=== PATIENT | female | born 1990 | race Caucasian/White ===

== ENCOUNTER → 2016-05-11 | Outpatient (CLI) | payer OTHER ==
--- NOTE | 2016-05-11 16:48 | US ---
EXAMINATION TYPE: US OB <= 14 wk fetus DATE OF EXAM: 05/11/2016 4:29 PM COMPARISON: NONE CLINICAL HISTORY: Z36 Confirm Dates. EXAM PERFORMED: Transabdominal (TA) EXAM MEASUREMENTS: GESTATIONAL AGE / DATING Physician Established: (10 weeks/0 days) EDC: 12/07/2016 Dates by LMP: (10 weeks/0 days) EDC: 12/07/2016 Dates by First Scan: no previous Dates by Current Scan for: (10 weeks/4 days) EDC: 12/03/2016 MATERNAL ANATOMY Uterus: 12.4 x7.0 x 8.8 cm Right Ovary: 4.3 x 1.6 x 2.2 cm Left Ovary: 3.2 x 2.1 x 2.6 cm Post CDS / Adnexa: wnl Presence of free fluid: no Presence of corpus luteal cyst: no Presence of subchorionic bleed: no GESTATION / SURVEY CRL: 3.7 cm (10 weeks/4 days) Heart Rate: 187 bpm Rhythm: normal IUP: single Nuchal Translucency 10-14wks (normal less than 3mm): 1.2 mm Date of LMP: 03/02/2016 IMPRESSION: Single, viable IUP of 10 weeks 4 days. EDC of 12/03/2016
[2016-05-11 17:12] LABS: CH 33.2; CHCM 34.3; HCT 39.9 % (34.0-46.0); HDW 2.43; HGB 13.3 gm/dL (11.4-16.0); MCH 32.2 pg (25.0-35.0); MCHC 33.2 g/dL (31.0-37.0); Mean Platelet Volume 7.6; RBC 4.11 m/uL (3.80-5.40); RDW 12.1 % (11.5-15.5); WBC 7.4 k/uL (3.8-10.6)
[2016-05-11 17:13] LABS: Appearance,Urine Clear (Clear); Bilirubin,Urine Negative (Negative); Glucose,Urine (UA) Negative (Negative); Ketones,Urine Negative (Negative); Leukocyte Esterase,Urine Negative (Negative); Nitrite,Urine Negative (Negative); Protein,Urine Negative (Negative); Specific Gravity,Urine 1.017 (1.001-1.035); UA Billing (MACRO vs. MICRO) CHEM; Urobilinogen,Urine <2.0 mg/dL (<2.0)
[2016-05-11 17:27] LABS: Glucose 94 mg/dL (74-99); Non-African American GFR(MDRD) >60 (>60 ml/min/1.73 sqM)
[2016-05-11 17:58] LABS: Hepatitis B Surface Ag Index 0.06
[2016-05-12 13:51] LABS: HIV-1/HIV-2 Ab Screen NONREAC (NON REAC)
== END | disposition home or self-care (01) ==
LOC: RADUSMAIN 16:09
PROVIDERS: ATTEND Obstetrics & Gynecology
DX: Z36 Encounter for antenatal screening of mother (principal); Z34.81 Encounter for supervision of other normal pregnancy, first trimester; O26.811 Pregnancy related exhaustion and fatigue, first trimester; Z3A.10 10 weeks gestation of pregnancy
CPT/HCPCS: 36415; 76801; 76813; 81003; 82565; 82947; 85027; 86762; 86780; 86850; 86900; 86901; 87086; 87340; 87389; 87491; 87591

== ENCOUNTER 2016-05-27 11:24 | Emergency (ER) | payer OTHER ==
[2016-05-27 11:42] VITALS: BP 116/64; PULSE 105; RESP 16; TEMP 98.6
--- NOTE | 2016-05-27 12:13 | ED ---
Fever HPI - General Chief Complaint: Fever Stated Complaint: SORE THROAT &FLU LIKE SYMPTOM, 12 WEEKS Time Seen by Provider: 05/27/16 11:52 Source: patient Mode of arrival: ambulatory Limitations: no limitations - History of Present Illness Initial Comments: Patient is a 25-year-old at 12 weeks presenting with cough, congestion, sore throat, subjective fever. Patient's been having symptoms for the past 5 days. Patient complains of a subjective fever and has been taking Tylenol for it. Patient is a 6 contact at home. Her son was sick and his symptoms lasted for a week. Patient denies influenza vaccine. Patient admits to vaccine as up- to-date. Patient's been taking Benadryl as well for her symptoms at night. Admits to subjective fevers, chills. Denies shortness of breath, chest pain, nausea, vomiting, diarrhea, abdominal pain, vaginal bleeding or discharge. Patient denies dysuria. - Related Data Home Medications Medication Instructions Recorded Confirmed ALPRAZolam [Xanax] 0.25 mg PO DAILY PRN 06/30/15 05/27/16 Sertraline [Zoloft] 25 mg PO DAILY 06/30/15 05/27/16 Allergies Allergy/AdvReac Type Severity Reaction Status Date / Time aspirin Allergy Rash/Hives Verified 05/27/16 11:39 azithromycin [From Zithromax] Allergy Rash/Hives Verified 05/27/16 11:39 Review of Systems ROS Statement: Those systems with pertinent positive or pertinent negative responses have been documented in the HPI. Constitutional: + Subjective fever and +chills. HENT: +congestion, no rhinorrhea and + sore throat. Eyes: No discharge and no redness. Respiratory: +cough and no shortness of breath. Cardiovascular: No chest pain and no palpitations. Gastrointestinal: No nausea, no vomiting, no abdominal pain and no diarrhea. Genitourinary: No dysuria and no hematuria. Musculoskeletal: No back pain and no arthralgias. Skin: No pallor and no rash. Neurological: No dizziness and No headaches. ROS Other: All systems not noted in ROS Statement are negative. Past Medical History Past Medical History: No Reported History Additional Past Medical History / Comment(s): ANXIETY ATTACKS History of Any Multi-Drug Resistant Organisms: None Reported Past Surgical History: No Surgical Hx Reported Past Psychological History: Anxiety Smoking Status: Never smoker Past Alcohol Use History: Rare Past Drug Use History: None Reported General Exam - General Exam Comments Initial Comments: Constitutional: Patient appears well-developed and well-nourished. No distress. Head: Normocephalic and atraumatic. Eyes: Conjunctivae and EOM are normal. Right eye exhibits no discharge. Left eye exhibits no discharge. No scleral icterus. Ears: Bilateral TMs with normal landmarks Neck: Normal range of motion. Neck supple. No rigidity. Throat: Nonerythematous. Nonexudative posterior pharynx. Cardiovascular: Normal rate and regular rhythm. No murmur heard. Pulmonary/Chest: Effort normal and breath sounds normal. No respiratory distress. No wheezes. Abdominal: Soft. No distension. There is no tenderness. There is no rebound and no guarding. Musculoskeletal: Normal range of motion. No edema or tenderness. Neurological: Patient alert and oriented to person, place, and time. Skin: Skin is warm and dry. Not diaphoretic. Nursing notes and vitals reviewed. Limitations: no limitations Course Vital Signs 05/27/16 11:39 Temperature 98.6 F Pulse Rate 105 H Respiratory 16 Rate Blood Pressure 116/64 O2 Sat by Pulse 98 Oximetry - Reevaluation(s) Reevaluation #1: Patient with likely viral illness she was offered influenza testing and refusing. Patient Centor criteria negative. Medical Decision Making - Medical Decision Making Patient is a 25-year-old female at 12 weeks presenting with viral symptoms. She was offered influenza testing for which she is refusing. She is using symptomatically control with Benadryl and Tylenol at the direction of her [facility]. Patient reassured that she is doing everything she can for her illness. Prior to discharge, patient was resting comfortably in bed. Course of stay stable for outpatient management. Denies pain. Discussed physical exam with patient. Questions answered and patient is agreeable to discharge with close follow up with Primary Care Physician. Instructed to return to Emergency Department if symptoms worsen. Disposition Clinical Impression: Viral infection Disposition: HOME SELF-CARE Condition: Good Instructions: Fever in Adults (ED) Referrals: Peter Gaytan MD [Primary Care Provider] - 1-2 days Atul Ibrahim DO [Doctor of Osteopathic Medicine] - 1-2 days
== END 2016-05-27 12:25 | disposition home or self-care (01) ==
LOC: EC 11:24
DX: O98.511 Other viral diseases complicating pregnancy, first trimester (principal); B34.9 Viral infection, unspecified; O99.341 Other mental disorders complicating pregnancy, first trimester; F41.9 Anxiety disorder, unspecified; Z79.899 Other long term (current) drug therapy; Z3A.12 12 weeks gestation of pregnancy; Z88.1 Allergy status to other antibiotic agents; Z88.6 Allergy status to analgesic agent
CPT/HCPCS: 99282

== ENCOUNTER → 2016-07-16 | Outpatient (CLI) | payer OTHER ==
--- NOTE | 2016-07-16 15:25 | US ---
EXAMINATION TYPE: US OB anatomy transabd DATE OF EXAM: 07/16/2016 12:43 PM COMPARISON: 05/11/2016 HISTORY: 25-year-old female O36.62X0 LARGE FOR DATES. NO complaints per patient. TECHNIQUE: Transabdominal (TA) FINDINGS: EXAM MEASUREMENTS: GESTATIONAL AGE / DATING Physician Established: (19 weeks/3 days) EDC: 12/07/2016 Dates by LMP: (19 weeks/3 days) EDC: 12/07/2016 Dates by First Scan: (19 weeks/6 days) EDC: 12/03/2016 Dates by Current Scan for: (19 weeks/4 days) EDC: 12/06/2016 SURVEY IUP: Single PLACENTA: Anterior PREVIA: No previa MISAEL: 12.1 cm Normal CERVICAL LENGTH (transabdominal: norm > 3.0cm): 3.9 cm BIOMETRY PRESENTATION: Vertex LIE: Oblique BPD: 4.6 cm 19 weeks / 6 days HC: 17.4 cm 19 weeks / 6 days AC: 14.5 cm 19 weeks / 5 days FL: 3.0 cm 19 weeks / 3 days ESTIMATED WEIGHT IN GRAMS: 303 grams ESTIMATED WEIGHT IN LBS/OZS: 0 lbs. 11 oz. WEIGHT PERCENTAGE BASED ON ESTABLISHED DATE: 57 % HC/AC: 1.20 Normal FL/AC: 21 Normal HEART RATE: 152 bpm RHYTHM: Normal ANATOMY SEEN (within normal limits): Lateral Vent (< 1 cm) 0.6 cm Cisterna Magna (< 1.1 cm) 0.5 cm Nuchal Fold (< 0.6 cm) 0.2 cm Cerebellum (varies with age) 1.9 cm Choroid Plexus (bilateral) Midline Falx Cavus Septi Pellucidi Four Chamber Heart Stomach Situs Nose / Lips Diaphragm Kidneys (bilateral) Bladder Cord Insert Three Vessel Cord Transverse Spine Arms (bilateral) Legs (bilateral) ANATOMY SUBOPTIMALLY VISUALIZED: Outflow tracts: LVOT/RVOT Longitudinal Spine (questionable focal protuberance of the skin line along the upper thoracic spine v ersus off plane imaging). IMPRESSION: 1. Single intrauterine with estimated gestational age of 19 weeks 3 days by LMP. Current ul trasound biometry is concordant (19 weeks 4 days) placing the child at the 57th percentile for weight . 2. A field of the structures on the survey were suboptimally visualized (outflow tracts, longit udinal spine). If desired, the patient can be scheduled for a rescan for missed anatomy. 3. Otherwise, the visualized structures appear normal.
[2016-07-17 09:10] LABS: Alpha Fetoprotein 91.9 ng/mL; Alpha Fetoprotein (M.O.M) 1.89; B-HCG (M.O.M.) 1.31; Gestational Age (days) 3; Human Chorionic Gonadotropin 24.9 IU/mL; Inhibin A (M.O.M.) 0.94; Interpretation SeeBelow; Maternal Age at EDD (Yrs) 28
== END | disposition home or self-care (01) ==
LOC: RADUSWWP 11:06
PROVIDERS: ATTEND Obstetrics & Gynecology
DX: O36.62X0 Maternal care for excessive fetal growth, second trimester, not applicable or unspecified (principal); Z3A.19 19 weeks gestation of pregnancy
CPT/HCPCS: 76811; 82105; 82677; 84702; 86336

== ENCOUNTER → 2016-08-29 | Outpatient (CLI) | payer OTHER ==
[2016-08-29 10:23] LABS: CH 33.7; CHCM 33.8; HCT 35.7 % (34.0-46.0); HGB 11.8 gm/dL (11.4-16.0); MCH 33.2 pg (25.0-35.0); MCHC 33.1 g/dL (31.0-37.0); MCV 100.4 fL (80.0-100.0); Mean Platelet Volume 8.2; RBC 3.55 m/uL (3.80-5.40); WBC 8.7 k/uL (3.8-10.6)
== END | disposition home or self-care (01) ==
LOC: LABWHC1 08:20
PROVIDERS: ATTEND Obstetrics & Gynecology
DX: Z34.82 Encounter for supervision of other normal pregnancy, second trimester (principal); Z3A.00 Weeks of gestation of pregnancy not specified
CPT/HCPCS: 36415; 82950; 85027

== ENCOUNTER 2016-12-01 11:41 | Inpatient (IN) | payer OTHER ==
[2016-12-01] MEDS ORDERED: OXYTOCIN 10 UNIT/ML 1 ML VIAL IM PRN (12:12)
[2016-12-01] MEDS ORDERED: CARBOPROST TROMETHAMINE 250 MCG/ML 1 ML AMP IM PRN (12:12)
[2016-12-01] MEDS ORDERED: LIDOCAINE 1% (PF) 10 MG/ML (30 ML SDV) SQ PRN (12:12)
[2016-12-01] MEDS ORDERED: TERBUTALINE 1 MG/ML VIAL SQ PRN (12:12)
[2016-12-01] MEDS ORDERED: METHYLERGONOVINE 0.2 MG/ML 1 ML AMP IM PRN (12:12)
[2016-12-01] MEDS ORDERED: OXYTOCIN 20 UNITS/1000 ML NS 1,000 ML IV SCH ×2 (12:15→19:45)
[2016-12-01] MEDS ORDERED: AMPICILLIN 2,000 MG in SODIUM CHLORIDE 0.9% 100 ML IVPB STA (12:19)
[2016-12-01] MEDS: LACTATED RINGERS 1,000 ML IV SCH ×4 (12:38→21:22)
[2016-12-01 12:56] LABS: Basophils % (A) 0 %; CHCM 32.7; Eosinophils % (A) 0 %; HDW 3.59; HGB 10.6 gm/dL (11.4-16.0); Hypochromasia Slight; Large Platelets Flag Moderate; Luc # (Auto) 0.19; Luc % (Auto) 2; Lymphocytes # (A) 1.3 k/uL (1.0-4.8); Lymphocytes % (A) 14 %; MCH 28.4 pg (25.0-35.0); MCV 88.8 fL (80.0-100.0); Mean Platelet Volume 11.8; Monocytes # (A) 0.6 k/uL (0-1.0); Monocytes % (A) 7 %; Neutrophils # (A) 7.1 k/uL (1.3-7.7); Neutrophils % (A) 77 %; Poikilocytosis Slight; RBC 3.72 m/uL (3.80-5.40); RDW 14.6 % (11.5-15.5); WBC 9.2 k/uL (3.8-10.6)
[2016-12-01 13:16] LABS: Large Platelets Present
[2016-12-01 13:33] VITALS: BMI 32.2
[2016-12-01] MEDS ORDERED: fentaNYL (PF) 50 MCG/ML 5 ML AMP ONE (13:56)
[2016-12-01] MEDS ORDERED: SODIUM CHLORIDE 0.9% 100 ML BAG ONE (13:56)
[2016-12-01] MEDS ORDERED: BUPIVACAINE (PF) 0.25% 30 ML VIAL ONE (13:56)
[2016-12-01] MEDS ORDERED: AMPICILLIN 1,000 MG in SODIUM CHLORIDE 0.9% 50 ML IVPB SCH (16:30)
[2016-12-01] MEDS ORDERED: CITRIC ACID-SODIUM CITRATE 15 ML CUP PO ONE ×2 (18:28→18:29)
[2016-12-01] MEDS ORDERED: ONDANSETRON 4 MG/2 ML VIAL ONE (18:40)
[2016-12-01] MEDS ORDERED: PHENYLEPHRINE-0.9% NACL SYG 1 MG/10 ML SYRINGE ONE (18:40)
[2016-12-01] MEDS ORDERED: ceFAZolin 1,000 MG VIAL ONE (18:40)
[2016-12-01] MEDS ORDERED: MORPHINE SULFATE (PF) 0.3 MG/0.3 ML SYR ONE (18:40)
[2016-12-01] MEDS ORDERED: fentaNYL (PF) 50 MCG/ML 2 ML AMP ONE (18:40)
[2016-12-01] MEDS ORDERED: KETOROLAC 30 MG/ML 1 ML VIAL ONE (18:40)
[2016-12-01] MEDS ORDERED: SODIUM CHLORIDE 0.9% 1,000 ML BAG ONE (18:40)
[2016-12-01] MEDS ORDERED: ONDANSETRON 4 MG/2 ML VIAL IVP PRN (19:39)
[2016-12-01] MEDS ORDERED: diphenhydrAMINE 25 MG CAP PO PRN (19:39)
[2016-12-01] MEDS ORDERED: ZOLPIDEM 5 MG TAB PO PRN (19:39)
[2016-12-01] MEDS ORDERED: diphenhydrAMINE 50 MG/ML 1 ML VIAL IVP PRN ×2 (19:39)
[2016-12-01] MEDS ORDERED: Acetaminophen-Codeine 300-30mg TAB PO PRN ×2 (19:39)
[2016-12-01] MEDS ORDERED: METOCLOPRAMIDE 5 MG/ML 2 ML VIAL IVP PRN (19:39)
[2016-12-01] MEDS ORDERED: diphenhydrAMINE 50 MG CAP PO PRN (19:39)
[2016-12-01] MEDS ORDERED: ACETAMINOPHEN TAB 325 MG TAB PO PRN (19:39)
[2016-12-01] MEDS ORDERED: NALOXONE 0.4 MG/ML 1 ML VIAL IV PRN (19:39)
[2016-12-01] MEDS ORDERED: LANOLIN CREAM 5 GM TUBE TOPICAL PRN (19:39)
--- NOTE | 2016-12-01 19:48 | P.HPOB ---
History of Present Illness H&P Date: 12/01/16 Chief Complaint: SROM,Labor 26-year-old presents at 39 weeks and 1 day with spontaneous rupture membranes at 9:30 AM with clear fluid and saira every 1-2 minutes. heart tones are 140-145 with moderate variability and reactive. Cervix is 4-5 cm dilated, 80% effaced, -2 station. Review of Systems All systems: negative Constitutional: Denies chills, Denies fever Eyes: denies blurred vision, denies pain Ears, nose, mouth and throat: Denies headache, Denies sore throat Cardiovascular: Denies chest pain, Denies shortness of breath Respiratory: Denies cough Gastrointestinal: Denies abdominal pain, Denies diarrhea, Denies nausea, Denies vomiting Genitourinary: Denies dysuria, Denies hematuria Musculoskeletal: Denies myalgias Integumentary: Denies pruritus, Denies rash Neurological: Denies numbness, Denies weakness Psychiatric: Denies anxiety, Denies depression Endocrine: Denies fatigue, Denies weight change Past Medical History Past Medical History: No Reported History Additional Past Medical History / Comment(s): ANXIETY ATTACKS. Obstetric history: First was a stillbirth at 20 weeks after which she had to have a blood transfusion. Second was a full-term vaginal delivery. This is her third and she's had care with Dr. Rosario. Blood type is A+, antibodies negative, hepatitis B negative, rubella immune, GBS positive, HIV nonreactive. History of Any Multi-Drug Resistant Organisms: None Reported Past Surgical History: No Surgical Hx Reported Past Anesthesia/Blood Transfusion Reactions: No Reported Reaction Past Psychological History: Anxiety Smoking Status: Never smoker Past Alcohol Use History: Rare Past Drug Use History: None Reported - Past Family History Mother Additional Family Medical History / Comment(s): tachycardia Medications and Allergies Allergies Allergy/AdvReac Type Severity Reaction Status Date / Time aspirin Allergy Rash/Hives Verified 05/27/16 11:39 azithromycin [From Zithromax] Allergy Rash/Hives Verified 05/27/16 11:39 Exam Osteopathic Statement: *. No significant issues noted on an osteopathic structural exam other than those noted in the History and Physical/Consult. - Vital Signs Vital signs: Vital Signs Temp Pulse Resp BP Pulse Ox 12/01/16 11:45 97.1 F L 112 H 18 113/66 99 Intake and Output 12/01/16 12/01/16 12/01/16 06:59 14:59 22:59 Other: Weight 85.275 kg Patient Weight 12/02/16 06:59 Weight 85.275 kg Heart: Regular rate and rhythm Lungs: Clear to auscultation bilaterally Abdomen: Soft, nontender Extremities: Negative Homans sign Results Result Diagrams: 12/01/16 12:35 Abnormal Lab Results - Last 24 Hours (Table) 12/01/16 Range/Units 12:35 RBC 3.72 L (3.80-5.40) m/uL Hgb 10.6 L (11.4-16.0) gm/dL Hct 33.0 L (34.0-46.0) % Assessment and Plan (1) Spontaneous rupture of membranes Status: Acute (2) Normal labor Status: Acute Plan: 1. Admit to family place 2. Ampicillin for GBS prophylaxis 3. Anticipate normal vaginal delivery
--- NOTE | 2016-12-01 19:58 | P.OP ---
Date of Procedure: 12/01/16 Preoperative Diagnosis: 1.Arrest of Descent 2. tachycardia Postoperative Diagnosis: 1. Arrest of Descent 2. tachycardia 3. OT presentation Procedure(s) Performed: Primary low transverse Implants: Anesthesia: spinal Surgeon: Anna Novak Folder Machine Operator #1: Awais Dumont Estimated Blood Loss (ml): 500 IV fluids (ml): 1,100 Urine output (ml): 100 Pathology: other (placenta) Condition: stable Disposition: floor Indications for Procedure: 26-year-old presented at 39 weeks and 1 day with spontaneous rupture membranes and in labor. Her cervix was 4-5/80/-2. She was saira every 1-2 minutes heart tones 140-145 with moderate variability and reactive. She did become uncomfortable and did get an epidural. She progressed to about 7-8 cm dilated and progressed further than this. I did have her push a few times though because I could not start Pitocin since she is saira so much she is feeling pressure to push. She did become complete but did not have descent with pushing. The baby started having tachycardia and some decelerations. The decision was made to do a section and informed consent was obtained. Operative Findings: viable male, 5, 8; weight 9 pounds Description of Procedure: Patient was taken to the operating room where spinal anesthesia was found be adequate. She was prepped and draped in normal sterile fashion in dorsal supine position with a leftward tilt. Pfannenstiel skin incision was made the scalpel and carried through to the underlying layer of fascia with the scalpel. Fascia was incised in midline and carried bilaterally with the Lawson scissors. The superior aspect of the fascial incision was grasped with Weidman clamps elevated and the underlying rectus muscles dissected off with the Lawson's. Attention was then turned to inferior aspect of same incision which in a similar fashion was grasped tented up and the underlying rectus muscles dissected off with the Lawson's. The rectus muscles were the midline and the peritoneum was identified tented up and entered sharply with the scalpel. The incision was extended superiorly and inferiorly with good visualization of the bladder. The bladder blade was inserted and the vesicouterine peritoneum was incised the Metzenbaums then carried bilaterally and bladder flap created digitally. A low transverse incision was then made on the uterus with the scalpel. This was carried bilaterally and digital manner. Infant's head delivered atraumatically, nose and mouth bulb suctioned, cord clamped and cut, handed off to waiting nurses. Apgars 5,8, weight 9 lbs. Placenta delivered manually, intact with three-vessel cord. The cord was found to have a true knot and a segment was removed for cord gases. The uterus is exteriorized and cleared of all clots and debris. The uterine incision was closed with 0 Vicryl in a running locked fashion. Second layer of the same sutures used in imbricating fashion to obtain excellent hemostasis. Bladder flap was then reapproximated using 2-0 Vicryl in a running fashion. Both ovaries and tubes appeared normal. The uterus was placed back into the abdomen. The peritoneum was reapproximated using 2-0 Vicryl in a running fashion. The muscles were reapproximated using 2-0 Vicryl in interrupted fashion. The fascia was reapproximated using 0 Vicryl in a running fashion. The subcutaneous tissues closed with 3-0 Vicryl running fashion. The skin was closed craig. Patient tolerated the procedure well, sponge and instrument counts were correct times 2 and she was taken to the recovery room in stable condition.
[2016-12-01] MEDS ORDERED: HYDROcodone/APAP 5-325MG 1 EACH TAB PO PRN (20:06)
[2016-12-01] MEDS: SENNOSIDES-DOCUSATE SODIUM 1 EACH TAB PO SCH (21:21)
[2016-12-02] MEDS: KETOROLAC 30 MG/ML 1 ML VIAL IVP PRN ×4 (00:06→19:38)
[2016-12-02] MEDS: LACTATED RINGERS 1,000 ML IV SCH ×2 (06:47→15:59)
[2016-12-02 08:03] LABS: Basophils % (A) 0 %; CH 28.5; CHCM 31.7; Eosinophils % (A) 0 %; HCT 29.3 % (34.0-46.0); Hypochromasia Moderate; Large Platelets Flag Moderate; Luc # (Auto) 0.27; Luc % (Auto) 1; Lymphocytes # (A) 0.8 k/uL (1.0-4.8); Lymphocytes % (A) 4 %; MCH 27.9 pg (25.0-35.0); MCHC 30.9 g/dL (31.0-37.0); MCV 90.2 fL (80.0-100.0); Mean Platelet Volume 12.1; Monocytes # (A) 1.2 k/uL (0-1.0); Monocytes % (A) 6 %; Neutrophils # (A) 17.3 k/uL (1.3-7.7); Neutrophils % (A) 88 %; Poikilocytosis Slight; RBC 3.25 m/uL (3.80-5.40); RDW 14.5 % (11.5-15.5); WBC 19.6 k/uL (3.8-10.6); WBC (Perox) 21.74
[2016-12-02 08:52] LABS: Large Platelets Present; Polychromasia Present
--- NOTE | 2016-12-02 09:39 | P.PNOBGPC ---
Subjective - Subjective Principal diagnosis: S/P 1*LTCS POD #1 Interval history: Patient seen and examined. Denies nausea, vomiting, chest pain, shortness of breath or calf pain. Complains some itchiness due to her spinal. She has not passed any flatus yet. Tolerating clears. Patient reports: Reports appetite normal, Reports voiding normally, Reports pain well controlled, Reports ambulating normally Objective - Vital Signs Latest vital signs: Vital Signs Temp Pulse Resp BP Pulse Ox 12/02/16 07:35 97.5 F L 87 16 118/55 98 12/02/16 03:59 97.9 F 105 H 18 106/68 97 12/02/16 00:00 97.9 F 82 18 105/63 97 12/01/16 21:37 97.9 F 99 18 115/57 96 12/01/16 21:07 96.7 F L 87 18 123/73 95 12/01/16 20:46 77 18 12/01/16 20:37 97.1 F L 95 18 111/62 96 12/01/16 20:20 96.7 F L 92 18 111/58 98 12/01/16 20:07 96.4 F L 86 18 107/51 98 12/01/16 20:00 96.6 F L 94 18 106/52 99 12/01/16 19:52 96.5 F L 92 18 100/52 99 12/01/16 19:37 96.9 F L 97 16 93/49 98 12/01/16 11:45 97.1 F L 112 H 18 113/66 99 Intake and Output 12/01/16 12/02/16 12/02/16 22:59 06:59 14:59 Output Total 565 315 10 Balance -565 -315 -10 Output: Urine 100 315 10 Uretheral (Gillis) 15 Emesis 465 Other: Voiding Method Indwelling Catheter Indwelling Catheter # Voids 1 - Exam Lungs: bilateral: normal Chest: Normal S1, Normal S2 Extremities: Present: normal Abdomen: Present: normal appearance, soft, distention. Absent: tenderness Incision: Present: normal, dry, intact Uterus: Present: normal, firm - Labs Labs: Abnormal Lab Results - Last 24 Hours (Table) 12/01/16 12/02/16 Range/Units 12:35 07:05 WBC 19.6 H (3.8-10.6) k/uL RBC 3.72 L 3.25 L (3.80-5.40) m/uL Hgb 10.6 L 9.0 L D (11.4-16.0) gm/dL Hct 33.0 L 29.3 L (34.0-46.0) % MCHC 30.9 L (31.0-37.0) g/dL Neutrophils # 17.3 H (1.3-7.7) k/uL Lymphocytes # 0.8 L (1.0-4.8) k/uL Monocytes # 1.2 H (0-1.0) k/uL Assessment and Plan (1) Spontaneous rupture of membranes Current Visit: Yes Status: Resolved Code(s): IOQ7748 - SNOMED Code(s): 074766592 (2) Normal labor Current Visit: Yes Status: Resolved Code(s): O80 - ENCOUNTER FOR FULL-TERM UNCOMPLICATED DELIVERY; Z37.9 - OUTCOME OF DELIVERY, UNSPECIFIED SNOMED Code(s ): 53256665 (3) Status post primary low transverse section Narrative/Plan: 1. continue post op care 2. increase ambulation 3. reg diet with flatus Current Visit: Yes Status: Acute Code(s): Z98.891 - HISTORY OF UTERINE SCAR FROM PREVIOUS SURGERY SNOMED Code(s): 423459991
--- NOTE | 2016-12-02 11:35 | P.PN ---
Progress Note - Text 1040 Anesthesia POD 1. Patient is status post section under spinal anesthesia with intra-thecal preservative free morphine 300 g. Minimal pruritus, good post-op analgesia, and no headache or other complication.
[2016-12-02] MEDS: SENNOSIDES-DOCUSATE SODIUM 1 EACH TAB PO SCH ×2 (12:10→19:40)
[2016-12-02] MEDS: HYDROcodone/APAP 5-325MG 1 EACH TAB PO PRN ×2 (14:40→22:37)
[2016-12-02 15:58] VITALS: RESP 16
[2016-12-03] MEDS: IBUPROFEN 600 MG TAB PO PRN ×4 (01:49→22:01)
[2016-12-03] MEDS: SIMETHICONE 80 MG CHEWABLE PO PRN ×3 (01:52→17:43)
[2016-12-03] MEDS: HYDROcodone/APAP 5-325MG 1 EACH TAB PO PRN ×3 (06:33→18:53)
[2016-12-03] MEDS: SENNOSIDES-DOCUSATE SODIUM 1 EACH TAB PO SCH ×2 (08:43→19:45)
--- NOTE | 2016-12-03 08:44 | P.PNOBGPC ---
Subjective - Subjective Principal diagnosis: Postop day 2 Interval history: Estephania is seen and evaluated. She is in the NICU seeing her baby. She's angling, voiding and she is tolerating a diet. She voices no placed. Her vital signs are stable and afebrile. Heart regular, lungs clear, extremities without pain. Overall she is doing very well for postop day 2. Assessment postop day 2. Plan continue current care. Patient reports: Reports appetite normal, Reports voiding normally, Reports pain well controlled, Reports ambulating normally [place]: in NICU Objective - Vital Signs Latest vital signs: Vital Signs Temp Pulse Resp BP Pulse Ox 12/03/16 08:00 98 F 84 16 104/68 98 12/03/16 00:00 97.7 F 103 H 16 130/67 12/02/16 20:00 97.9 F 76 16 94/66 12/02/16 15:55 98.4 F 95 16 112/59 12/02/16 12:00 98.7 F 80 18 113/55 98 Intake and Output 12/02/16 12/03/16 12/03/16 22:59 06:59 14:59 Other: # Voids 1 1 2 - Labs Labs: Abnormal Lab Results - Last 24 Hours (Table) 12/02/16 Range/Units 07:05 WBC 19.6 H (3.8-10.6) k/uL RBC 3.25 L (3.80-5.40) m/uL Hgb 9.0 L D (11.4-16.0) gm/dL Hct 29.3 L (34.0-46.0) % MCHC 30.9 L (31.0-37.0) g/dL Neutrophils # 17.3 H (1.3-7.7) k/uL Lymphocytes # 0.8 L (1.0-4.8) k/uL Monocytes # 1.2 H (0-1.0) k/uL
[2016-12-04] MEDS: HYDROcodone/APAP 5-325MG 1 EACH TAB PO PRN ×2 (02:11→12:17)
--- NOTE | 2016-12-04 08:13 | P.DS ---
Providers Date of admission: 12/01/16 12:04 Expected date of discharge: 12/04/16 Attending physician: Atul Ibrahim Hospital Course: Estephania is doing very well postop day 3. She's angling, voiding, and she is tolerating her diet. She voices no complaints. Vital signs are stable and afebrile. Heart regular, lungs clear, extremities without pain. Abdomen is soft uterus is firm and incision is clean dry and intact. We'll plan to remove craig today prior to discharge. Prescription for Motrin towel 3 are provided. Discharge instructions were thoroughly reviewed with the patient and she will follow up with me in 1 week. Sessile postop day 3. Plan discharged home follow up with me in 1 week. Patient Condition at Discharge: Good Plan - Discharge Summary New Discharge Prescriptions: New Acetaminophen-Codeine 300-30mg [Tylenol #3] 1 tab PO Q4H PRN #30 tablet PRN Reason: Pain Ibuprofen [Motrin] 600 mg PO Q6HR PRN #30 tab PRN Reason: Pain Discharge Medication List Acetaminophen-Codeine 300-30mg [Tylenol #3] 1 tab PO Q4H PRN #30 tablet [Rx] Ibuprofen [Motrin] 600 mg PO Q6HR PRN #30 tab 12/04/16 [Rx] Follow up Appointment(s)/Referral(s): Atul Ibrahim DO [Doctor of Osteopathic Medicine] - 1 Week Activity/Diet/Wound Care/Special Instructions: No heavy lifting, limit stairs and driving, and pelvic rest. If any high temperatures, heavy bleeding, or severe pain call my office. Other standard postop discharge instructions supplied and reviewed. Discharge Disposition: HOME SELF-CARE
[2016-12-04] MEDS: SENNOSIDES-DOCUSATE SODIUM 1 EACH TAB PO SCH (08:25)
[2016-12-04] MEDS: IBUPROFEN 600 MG TAB PO PRN (08:25)
[2016-12-04 11:13] VITALS: BP 104/58; PULSE 71; TEMP 98.1
--- NOTE | 2016-12-05 08:42 | P.MSEPDOC ---
Presenting Problems - Arrival Data Date of Arrival on Unit: 12/01/16 Time of Arrival on Unit: 12:05 Mode of Transport: Bed - Complaint OB-Reason for Admission/Chief Complaint: Rule Out SROM Comment: SROM clear fluid at 929. Medical History - Information : 3 Para: 1 Term: 1 : 1 Abortions: Spontaneous or Elective: 0 Number of Living Children: 2 - Gestational Age Expected Date of Delivery: 12/07/16 Gestational Age by EMILIE (wks/days): 39 Weeks and 5 Days - History Complications: GBS+ Comment: history of stillbirth at 20weeks requiring blood transfusion Review of Systems - Review of Systems Constitutional: No problems Breast: No problems ENT: No problems Cardiovascular: No problems Respiratory: No problems Gastrointestinal: No problems Genitourinary: No problems Musculoskeletal: No problems Neurological: No problems Skin: No problems Vital Signs - Temperature Temperature: 98.1 F Temperature Source: Oral - Pulse Right Sitting Brachial Pulse Rate: 71 Pulse Assessment Method: Automatic Cuff - Respirations Respiratory Rate: 16 Oxygen Delivery Method: Room Air - Blood Pressure Right Arm Sitting Blood Pressure: 104/58 Blood Pressure Mean: 73 Blood Pressure Source: Automatic Cuff Medical Screen Scoring (Pre) - Cervical Exam Dilation: 1-3 cm = 1 Effacement: More than 50% = 2 Membranes: Ruptured = 3 - Uterine Contractions Frequency: > or = 36 weeks =2 Duration: N/A Intensity: N/A - Maternal Vital Signs Maternal Temperature: N/A Maternal Blood Pressure: N/A Signs of Preeclampsia: N/A Maternal Respirations: N/A - Maternal Trauma Maternal Trauma: N/A - Assessment Baseline FHR: 135 Heart Rate - NICHD Category: Category I (Normal) = 0 NST: Reactive Position: N/A Station: N/A - Total Score Total Score (Pre): 8 - Level of Risk Level of Risk: Medium (6-9) Physician Notification (Post) - Physician Notified Physician Notified Date: 12/01/16 Physician Notified Time: 12:05 Physician/Practitioner Notified:: Dr Novak Spoke With: Dr Novak New Order Received: Yes - Notification Comment Comment: admit - labor Disposition - Disposition OB Disposition: Admit Transferred to:: Discharge Date: 12/04/16 Discharge Time: 14:15 I agree with the RN Medical Screening Exam: Yes Risk & Benefit of care provided described in d/c instruction: Yes Diagnosis: ENCOUNTER FOR FULL-TERM UNCOMPLICATED DELIVERY
== END 2016-12-04 14:15 | disposition home or self-care (01) | DRG 766 ==
LOC: FBPOP 11:41 → 4FBP 12:04
PROVIDERS: ADMIT Obstetrics & Gynecology; ATTEND Obstetrics & Gynecology
PROC: 10D00Z1 Extraction of Products of Conception, Low, Open Approach (ICD-10-PCS; principal; 2016-12-01 18:40)
DX: O69.2XX0 Labor and delivery complicated by other cord entanglement, with compression, not applicable or unspecified (principal); F41.1 Generalized anxiety disorder; O99.344 Other mental disorders complicating childbirth; O62.1 Secondary uterine inertia; O76 Abnormality in fetal heart rate and rhythm complicating labor and delivery; O99.72 Diseases of the skin and subcutaneous tissue complicating childbirth; L29.9 Pruritus, unspecified; Z37.0 Single live birth; Z3A.39 39 weeks gestation of pregnancy; Z88.6 Allergy status to analgesic agent; Z88.1 Allergy status to other antibiotic agents
CPT/HCPCS: 59025; 82803; 84112; 85025; 88307; 99213

== ENCOUNTER 2016-12-08 22:07 | Emergency (ER) | payer OTHER ==
[2016-12-08] MEDS ORDERED: CEPHALEXIN 500MG STARTER PACK 4 CAP BTL PO STA (22:46)
[2016-12-08] MEDS ORDERED: SULFAMETH-TMP DS STARTER PACK 2 TAB BTL PO STA (22:46)
[2016-12-08 22:47] VITALS: TEMP 98.8
--- NOTE | 2016-12-08 22:51 | ED ---
General Adult HPI - General Source: patient, RN notes reviewed Mode of arrival: ambulatory Limitations: no limitations <Vivienne Mobley - Last Filed: 12/08/16 22:47> <Wenceslao Dowd - Last Filed: 12/09/16 06:06> - General Chief complaint: Recheck/Abnormal Lab/Rx Stated complaint: Female Time Seen by Provider: 12/08/16 22:32 - History of Present Illness Initial comments: 26-year-old female presents to the emergency department chief complaint of draining and redness to site that was done on [address] Nov[address]. Patient states she noticed the redness today. Patient states she then noted. Nares that she was concerned. Patient denies any fever chills with this. Patient states she called her OB instead wanted then she noticed the drainage so she thought that she should be seen. Patient denies any nausea vomiting this. Patient denies any changes in vaginal discharge. Patient was concerned due to the redness so she thought that she should be seen.Patient denies any recent fever, chills, shortness of breath, chest pain, back pain, abdominal pain , nausea vomiting, numbness or tingling, dysuria or hematuria, constipation or diarrhea, headaches or visual changes, or any other current symptoms. (Vivienne Mobley) - Related Data Previous Rx's Medication Instructions Recorded Ibuprofen [Motrin] 600 mg PO Q6HR PRN #30 tab 12/04/16 Cephalexin [Keflex] 500 mg PO Q6HR #40 cap 12/08/16 Sulfamethox-Tmp 800-160Mg [Bactrim 2 each PO Q12HR #56 tab 12/08/16 DS 800-160 mg] Allergies Allergy/AdvReac Type Severity Reaction Status Date / Time aspirin Allergy Rash/Hives Verified 12/08/16 22:17 azithromycin [From Zithromax] Allergy Rash/Hives Verified 12/08/16 22:17 Review of Systems ROS Other: All systems not noted in ROS Statement are negative. <Vivienne Mobley - Last Filed: 12/08/16 22:47> ROS Other: All systems not noted in ROS Statement are negative. <Wenceslao Dowd - Last Filed: 12/09/16 06:06> ROS Statement: Those systems with pertinent positive or pertinent negative responses have been documented in the HPI. Past Medical History Past Medical History: No Reported History Additional Past Medical History / Comment(s): ANXIETY ATTACKS. Obstetric history: First was a stillbirth at 20 weeks after which she had to have a blood transfusion. Second was a full-term vaginal delivery. This is her third and she's had care with Dr. Rosario. Blood type is A+, antibodies negative, hepatitis B negative, rubella immune, GBS positive, HIV nonreactive. History of Any Multi-Drug Resistant Organisms: None Reported Past Surgical History: Section Past Anesthesia/Blood Transfusion Reactions: No Reported Reaction Past Psychological History: Anxiety Smoking Status: Never smoker Past Alcohol Use History: Rare Past Drug Use History: None Reported - Past Family History Mother Additional Family Medical History / Comment(s): tachycardia <Vivienne Mobley - Last Filed: 12/08/16 22:47> General Exam Limitations: no limitations General appearance: alert, in no apparent distress Head exam: Present: atraumatic, normocephalic, normal inspection Neck exam: Present: normal inspection. Absent: tenderness, meningismus, lymphadenopathy Respiratory exam: Present: normal lung sounds bilaterally. Absent: respiratory distress, wheezes, rales, rhonchi, stridor GI/Abdominal exam: Present: soft, normal bowel sounds, other (Patient appears to have a healing incision there does appear to be a sternal with some bloody type drainage from the area. There is associated erythema with mild induration surrounding the incision site.). Absent: distended, tenderness , guarding, rebound, rigid Neurological exam: Present: alert, oriented X3 Psychiatric exam: Present: normal affect, normal mood Skin exam: Present: warm, dry, intact, normal color. Absent: rash <Vivienne Mobley - Last Filed: 12/08/16 22:47> Medical Decision Making <Vivienne Mobley - Last Filed: 12/08/16 22:47> <Wenceslao Dowd - Last Filed: 12/09/16 06:06> - Medical Decision Making 18-year-old female presents for what appears to be a seroma with concern for surgical site incision infection. We will send patient and asked for home. We discussed return parameters. We discussed close follow-up with her OB in all the patient's questions. They stated the Shukri and again plan. All questions have been answered. (Vivienne Mobley) 26-year-old female postop presents for evaluation. There is clear blood-tinged fluid draining from the incision. There is no wound dehiscence. There is some erythema on the anterior abdominal wall and mons pubis. No fluctuance or induration. This may represent normal erythema from healing or mild cellulitis. Patient is started on antibiotics and will follow-up with her [employer]. She is given strict return parameters including fever, worsening erythema, or the development of purulent drainage. (Wenceslao Dowd) Disposition Time of Disposition: 22:51 <Vivienne Mobley - Last Filed: 12/08/16 22:47> <Wenceslao Dowd - Last Filed: 12/09/16 06:06> Clinical Impression: section wound seroma, , section wound complication , Postoperative cellulitis of surgical wound Disposition: HOME SELF-CARE Condition: Stable Instructions: Cellulitis (ED) Additional Instructions: Please use medication as discussed. Please follow up with family doctor if symptoms have not improved over the next two days. Please return to the emergency room if your symptoms increase or worsen or for any other concerns. Prescriptions: Cephalexin [Keflex] 500 mg PO Q6HR #40 cap Sulfamethox-Tmp 800-160Mg [Bactrim DS 800-160 mg] 2 each PO Q12HR #56 tab Referrals: Shy Arriaza MD [STAFF PHYSICIAN] - 1-2 days Anna Novak DO [Doctor of Osteopathic Medicine] - 1-2 days
[2016-12-08 23:00] VITALS: BP 125/64; PULSE 84; RESP 16
== END 2016-12-08 22:59 | disposition home or self-care (01) ==
LOC: EC 22:07
DX: O86.0 Infection of obstetric surgical wound (principal); O99.73 Diseases of the skin and subcutaneous tissue complicating the puerperium; L03.311 Cellulitis of abdominal wall; L76.34 Postprocedural seroma of skin and subcutaneous tissue following other procedure; Z88.1 Allergy status to other antibiotic agents; Z88.6 Allergy status to analgesic agent
CPT/HCPCS: 99282

== ENCOUNTER 2018-11-14 13:14 | Observation (INO) | payer OTHER ==
[2018-11-14] MEDS ORDERED: SODIUM CHLORIDE 0.9% 1,000 ML IV STA (14:26)
[2018-11-14] MEDS ORDERED: KETOROLAC 30 MG/ML 1 ML VIAL IVP STA (14:26)
[2018-11-14] MEDS ORDERED: ONDANSETRON 4 MG/2 ML VIAL IVP STA (14:26)
[2018-11-14 14:51] LABS: Basophils % (A) 0 %; Eosinophils # (A) 0.1 k/uL (0-0.7); Eosinophils % (A) 1 %; HCT 39.4 % (34.0-46.0); HGB 12.9 gm/dL (11.4-16.0); Lymphocytes # (A) 0.6 k/uL (1.0-4.8); Lymphocytes % (A) 5 %; MCH 30.5 pg (25.0-35.0); MCHC 32.8 g/dL (31.0-37.0); Mean Platelet Volume 8.1; Monocytes # (A) 0.8 k/uL (0-1.0); Monocytes % (A) 6 %; Neutrophils # (A) 11.5 k/uL (1.3-7.7); Neutrophils % (A) 88 %; Platelet Count 225 k/uL (150-450); RBC 4.24 m/uL (3.80-5.40); RDW 12.8 % (11.5-15.5); WBC 13.1 k/uL (3.8-10.6)
[2018-11-14 14:58] LABS: Appearance,Urine Clear (Clear); Bilirubin,Urine Negative (Negative); Blood,Urine Negative (Negative); Color,Urine Yellow; Glucose,Urine (UA) Negative (Negative); Ketones,Urine Trace (Negative); Leukocyte Esterase,Urine Trace (Negative); Mucus,Urine Few /hpf; Nitrite,Urine Negative (Negative); PH, Urine 7.5 (5.0-8.0); Protein,Urine Negative (Negative); RBC,Urine 3 /hpf (0-5); Specific Gravity,Urine 1.026 (1.001-1.035); Squamous Epithelial Cell,Urine 3 /hpf (0-4); WBC,Urine 2 /hpf (0-5)
[2018-11-14 15:00] LABS: ALT 18 U/L (9-52); AST 19 U/L (14-36); African American GFR (CKD) >90 (>60 ml/min/1.73 sqM); Albumin 4.1 g/dL (3.5-5.0); Alkaline Phosphatase 86 U/L (38-126); Anion Gap 9 mmol/L; Blood Urea Nitrogen 13 mg/dL (7-17); Calcium 9.3 mg/dL (8.4-10.2); Carbon Dioxide 27 mmol/L (22-30); Chloride 102 mmol/L (98-107); Glucose 96 mg/dL (74-99); Non-African American GFR(CKD) >90 (>60 ml/min/1.73 sqM); Potassium 4.7 mmol/L (3.5-5.1); Sodium 138 mmol/L (137-145); Total Protein 7.4 g/dL (6.3-8.2)
--- NOTE | 2018-11-14 15:40 | US ---
EXAMINATION TYPE: US transvaginal DATE OF EXAM: 11/14/2018 COMPARISON: NONE CLINICAL HISTORY: Pelvic pain TECHNIQUE: Transvaginal (TV). Transabdominal sonographic images of the pelvis were acquired. Trans vaginal sonographic images were medically necessary to better assess the following anatomy: EXAM MEASUREMENTS: Uterus: 8.4 x 4.7 x 5.8 cm Endometrial Stripe: 0.7 cm Right Ovary: 2.6 x 2.1 x 1.7 cm Left Ovary: 2.5 x 2.0 x 2.6 cm 1. Uterus: Anteverted Nabothian cysts seen. 2. Endometrium: wnl 3. Right Ovary: wnl 4. Left Ovary: wnl Spectral, color and waveform doppler imaging shows good arterial and venous flow within the ovaries ; there is no evidence for ovarian torsion. 5. Bilateral Adnexa: wnl 6. Posterior cul-de-sac: wnl IMPRESSION: No current sonographic evidence of ovarian torsion. Unremarkable pelvic ultrasound.
--- NOTE | 2018-11-14 16:35 | CT ---
EXAMINATION TYPE: CT abdomen pelvis w con DATE OF EXAM: 11/14/2018 HISTORY: Mid Abdominal pain with nausea CT DLP: 684.9mGycm Automated Exposure Control for Dose Reduction was Utilized. CONTRAST: CT scan of the abdomen and pelvis is performed without oral but with IV Contrast, patient injected wi th 100 mL of Isovue 300. COMPARISON: Same day transvaginal ultrasound FINDINGS: LUNG BASES: No significant abnormality is appreciated. LIVER/GB: No significant abnormality is appreciated. PANCREAS: No significant abnormality is seen. SPLEEN: No significant abnormality is seen. ADRENALS: No significant abnormality is seen. KIDNEYS: No significant abnormality is seen. BOWEL: Evaluation bowel slightly suboptimal due to lack of enteric contrast and patient having little intra-abdominal fat. There is no suspicious small or large bowel dilatation. Appendix measures 5 to 7 mm which is upper limits of normal to perhaps minimally enlarged in portions on coronal image 24 for reference. There is minimal adjacent fat stranding but there is also additio nal mild fat stranding in the left paracolic gutter and lower abdomen. Mild wall thickening flow present in the sigmoid colon in the lower abdomen axial image 56 for refere nce. UTERUS/ADNEXA: Anteverted heterogeneous uterus is seen. No suspicious adnexal masses. No free fluid i n pelvis. LYMPH NODES: No greater than 1cm abdominal or pelvic lymph nodes are appreciated. OSSEOUS STRUCTURES: Transitional type vertebra lumbosacral junction. OTHER: No significant additional abnormality is seen. IMPRESSION: Cannot exclude mild colitis involving sigmoid colon. Equivocal findings for mild or early acute appendicitis. No acute finding otherwise is evident. Strict clinical correlation advised.
[2018-11-14] MEDS ORDERED: NALOXONE 0.4 MG/ML 1 ML VIAL IV PRN (17:27)
[2018-11-14] MEDS ORDERED: ONDANSETRON 4 MG/2 ML VIAL IVP PRN (17:27)
--- NOTE | 2018-11-14 17:27 | ED ---
Abdominal Pain HPI - General Chief Complaint: Abdominal Pain Stated Complaint: Abd pain Time Seen by Provider: 11/14/18 13:22 Source: patient Mode of arrival: ambulatory Limitations: no limitations - History of Present Illness Initial Comments: The patient is a 28-year-old female who presents to the emergency room with complaint of right lower quadrant abdominal pain. She states that it started yesterday. She describes it as sharp shooting pain which radiates up to her right upper quadrant. She has associated nausea with lack of appetite. Admits to chills however has no fever. She denies any changes in her urination to include dysuria, hematuria or difficulty voiding. She denies any changes in her bowel movements to include diarrhea, constipation, melanotic stools or hematochezia. Denies the possibility of being . No abnormal vaginal bleeding. Admits to mild vaginal discharge and has concern for possible yeast infection. No recent antibiotic use. Denies vomiting. No ripping or tearing sensation to her back. Denies flank pain. No reproducible pain upon movement. There are no other alleviating, precipitating or modifying factors - Related Data Home Medications Medication Instructions Recorded Confirmed Ibuprofen [Motrin Ib] 400 mg PO Q6H PRN 11/14/18 11/14/18 Allergies Allergy/AdvReac Type Severity Reaction Status Date / Time aspirin Allergy Rash/Hives Verified 11/14/18 17:42 azithromycin [From Zithromax] Allergy Rash/Hives Verified 11/14/18 17:42 acetaminophen AdvReac Nausea & Verified 11/14/18 17:42 [From Tylenol-Codeine #3] Vomiting codeine AdvReac Nausea & Verified 11/14/18 17:42 [From Tylenol-Codeine #3] Vomiting Review of Systems ROS Statement: Those systems with pertinent positive or pertinent negative responses have been documented in the HPI. ROS Other: All systems not noted in ROS Statement are negative. Past Medical History Past Medical History: No Reported History Additional Past Medical History / Comment(s): ANXIETY ATTACKS. Obstetric history: First was a stillbirth at 20 weeks after which she had to have a blood transfusion. Second was a full-term vaginal delivery. This is her third and she's had care with Dr. Rosario. Blood type is A+, antibodies negative, hepatitis B negative, rubella immune, GBS positive, HIV nonreactive. History of Any Multi-Drug Resistant Organisms: None Reported Past Surgical History: Section Past Anesthesia/Blood Transfusion Reactions: No Reported Reaction Past Psychological History: Anxiety Smoking Status: Never smoker Past Alcohol Use History: Rare Past Drug Use History: None Reported - Past Family History Mother Additional Family Medical History / Comment(s): tachycardia General Exam Limitations: no limitations General appearance: alert, in no apparent distress Head exam: Present: atraumatic, normocephalic, normal inspection Eye exam: Present: normal appearance, PERRL, EOMI. Absent: scleral icterus, conjunctival injection, periorbital swelling ENT exam: Present: normal exam, mucous membranes moist Neck exam: Present: normal inspection. Absent: tenderness, meningismus, lymphadenopathy Respiratory exam: Present: normal lung sounds bilaterally. Absent: respiratory distress, wheezes, rales, rhonchi, stridor Cardiovascular Exam: Present: normal rhythm, tachycardia, normal heart sounds. Absent: systolic murmur, diastolic murmur, rubs, gallop, clicks GI/Abdominal exam: Present: soft, tenderness (right lower quadrant), normal bowel sounds. Absent: distended, guarding, rebound, rigid Extremities exam: Present: normal inspection, full ROM, normal capillary refill. Absent: tenderness, pedal edema, joint swelling, calf tenderness Back exam: Present: normal inspection Neurological exam: Present: alert, oriented X3, CN II-XII intact Psychiatric exam: Present: normal affect, normal mood Skin exam: Present: warm, dry, intact, normal color. Absent: rash Course Vital Signs 11/14/18 11/14/18 11/14/18 13:31 17:20 18:24 Temperature 99.8 F H 99.0 F Pulse Rate 119 H 114 H Pulse Rate [ 92 Pulse Oximetery ] Respiratory 18 16 18 Rate Blood Pressure 116/60 117/61 Blood Pressure 113/69 [Left Arm] O2 Sat by Pulse 100 99 100 Oximetry Medical Decision Making - Medical Decision Making Upon arrival the patient is placed into room 22. She is hooked up to continuous pulse ox and cardiac monitoring. The patient has tenderness in the right lower quadrant therefore I am concerned for appendicitis. I did recommend laboratory studies, a urinalysis, a CT of the patient's abdomen and pelvis and a pelvic ultrasound. Upon return of the results they are discussed with the patient. Blood work is notable for a white blood cell count of 13,000. CT demonstrates possible colitis versus acute appendicitis. Because of these results I did call discuss case with Dr. Brower. She recommend treatment with Zosyn. I did obtain blood cultures and initiated antibiotics. Dr. Brower did accept admission of the patient. Bridging orders were placed. The patient was reevaluated and her abdomen remains non-peritoneal. She remained in stable condition was transported to the floor - Differential Diagnosis acute abd pain, acute colitis, acute appendicitis, acute leukocytosis - Lab Data Result diagrams: 11/15/18 06:09 11/15/18 06:09 Lab Results 11/14/18 11/14/18 11/14/18 Range/Units 14:26 14:26 14:26 WBC 13.1 H (3.8-10.6) k/uL RBC 4.24 (3.80-5.40) m/uL Hgb 12.9 (11.4-16.0) gm/dL Hct 39.4 (34.0-46.0) % MCV 93.0 (80.0-100.0) fL MCH 30.5 (25.0-35.0) pg MCHC 32.8 (31.0-37.0) g/dL RDW 12.8 (11.5-15.5) % Plt Count 225 (150-450) k/uL Neutrophils % 88 % Lymphocytes % 5 % Monocytes % 6 % Eosinophils % 1 % Basophils % 0 % Neutrophils # 11.5 H (1.3-7.7) k/uL Lymphocytes # 0.6 L (1.0-4.8) k/uL Monocytes # 0.8 (0-1.0) k/uL Eosinophils # 0.1 (0-0.7) k/uL Basophils # 0.0 (0-0.2) k/uL Sodium 138 (137-145) mmol/L Potassium 4.7 (3.5-5.1) mmol/L Chloride 102 (98-107) mmol/L Carbon Dioxide 27 (22-30) mmol/L Anion Gap 9 mmol/L BUN 13 (7-17) mg/dL Creatinine 0.60 (0.52-1.04) mg/dL Est GFR (CKD-EPI)AfAm >90 (>60 ml/min/1.73 sqM) Est GFR (CKD-EPI)NonAf >90 (>60 ml/min/1.73 sqM) Glucose 96 (74-99) mg/dL Plasma Lactic Acid Nikolay (0.7-2.0) mmol/L Calcium 9.3 (8.4-10.2) mg/dL Total Bilirubin 1.0 (0.2-1.3) mg/dL AST 19 (14-36) U/L ALT 18 (9-52) U/L Alkaline Phosphatase 86 (38-126) U/L Total Protein 7.4 (6.3-8.2) g/dL Albumin 4.1 (3.5-5.0) g/dL Lipase 30 (23-300) U/L Urine Color Urine Appearance (Clear) Urine pH (5.0-8.0) Ur Specific [place] (1.001-1.035) Urine Protein (Negative) Urine Glucose (UA) (Negative) Urine Ketones (Negative) Urine Blood (Negative) Urine Nitrite (Negative) Urine Bilirubin (Negative) Urine Urobilinogen (<2.0) mg/dL Ur Leukocyte Esterase (Negative) Urine RBC (0-5) /hpf Urine WBC (0-5) /hpf Ur Squamous Epith Cells (0-4) /hpf Urine Mucus (None) /hpf Urine HCG, Qual Not Detected (Not Detectd) 11/14/18 11/14/18 Range/Units 14:26 14:26 WBC (3.8-10.6) k/uL RBC (3.80-5.40) m/uL Hgb (11.4-16.0) gm/dL Hct (34.0-46.0) % MCV (80.0-100.0) fL MCH (25.0-35.0) pg MCHC (31.0-37.0) g/dL RDW (11.5-15.5) % Plt Count (150-450) k/uL Neutrophils % % Lymphocytes % % Monocytes % % Eosinophils % % Basophils % % Neutrophils # (1.3-7.7) k/uL Lymphocytes # (1.0-4.8) k/uL Monocytes # (0-1.0) k/uL Eosinophils # (0-0.7) k/uL Basophils # (0-0.2) k/uL Sodium (137-145) mmol/L Potassium (3.5-5.1) mmol/L Chloride (98-107) mmol/L Carbon Dioxide (22-30) mmol/L Anion Gap mmol/L BUN (7-17) mg/dL Creatinine (0.52-1.04) mg/dL Est GFR (CKD-EPI)AfAm (>60 ml/min/1.73 sqM) Est GFR (CKD-EPI)NonAf (>60 ml/min/1.73 sqM) Glucose (74-99) mg/dL Plasma Lactic Acid Nikolay 0.8 (0.7-2.0) mmol/L Calcium (8.4-10.2) mg/dL Total Bilirubin (0.2-1.3) mg/dL AST (14-36) U/L ALT (9-52) U/L Alkaline Phosphatase (38-126) U/L Total Protein (6.3-8.2) g/dL Albumin (3.5-5.0) g/dL Lipase (23-300) U/L Urine Color Yellow Urine Appearance Clear (Clear) Urine pH 7.5 (5.0-8.0) Ur Specific [place] 1.026 (1.001-1.035) Urine Protein Negative (Negative) Urine Glucose (UA) Negative (Negative) Urine Ketones Trace H (Negative) Urine Blood Negative (Negative) Urine Nitrite Negative (Negative) Urine Bilirubin Negative (Negative) Urine Urobilinogen 4.0 (<2.0) mg/dL Ur Leukocyte Esterase Trace H (Negative) Urine RBC 3 (0-5) /hpf Urine WBC 2 (0-5) /hpf Ur Squamous Epith Cells 3 (0-4) /hpf Urine Mucus Few H (None) /hpf Urine HCG, Qual (Not Detectd) Disposition Clinical Impression: Abdominal pain, Acute appendicitis, Acute colitis Disposition: ADMITTED IP TO THIS [facility] Condition: Stable Is patient prescribed a controlled substance at d/c from ED?: No Decision to Admit Reason: Admit from EC Decision Date: 11/14/18 Decision Time: 17:27
[2018-11-14] MEDS ORDERED: PIPERACILLIN-TAZOBACTAM 3.375 GM in SODIUM CHLORIDE 0.9% 100 ML IVPB STA (18:03)
[2018-11-14 18:42] VITALS: BMI 28.3
[2018-11-14] MEDS: MORPHINE SULFATE 4 MG/ML SYRINGE IV PRN ×2 (18:44→22:31)
[2018-11-14] MEDS: SODIUM CHLORIDE 0.9% 1,000 ML IV SCH (18:45)
[2018-11-15] MEDS: MORPHINE SULFATE 4 MG/ML SYRINGE IV PRN (02:25)
[2018-11-15] MEDS: PIPERACILLIN-TAZOBACTAM 3.375 GM in SODIUM CHLORIDE 0.9% 100 ML IVPB SCH ×3 (02:25→15:38)
[2018-11-15] MEDS: SODIUM CHLORIDE 0.9% 1,000 ML IV SCH (06:00)
[2018-11-15 06:36] LABS: Basophils % (A) 0 %; Eosinophils # (A) 0.1 k/uL (0-0.7); Eosinophils % (A) 1 %; HCT 34.7 % (34.0-46.0); HGB 11.5 gm/dL (11.4-16.0); Lymphocytes % (A) 15 %; MCH 31.8 pg (25.0-35.0); MCHC 33.2 g/dL (31.0-37.0); MCV 95.9 fL (80.0-100.0); Mean Platelet Volume 8.3; Monocytes # (A) 0.5 k/uL (0-1.0); Monocytes % (A) 8 %; Neutrophils # (A) 4.7 k/uL (1.3-7.7); Neutrophils % (A) 74 %; Platelet Count 197 k/uL (150-450); RBC 3.62 m/uL (3.80-5.40); RDW 13.7 % (11.5-15.5); WBC 6.3 k/uL (3.8-10.6)
[2018-11-15 06:48] LABS: African American GFR (CKD) >90 (>60 ml/min/1.73 sqM); Anion Gap 7 mmol/L; Blood Urea Nitrogen 11 mg/dL (7-17); Calcium 8.5 mg/dL (8.4-10.2); Carbon Dioxide 28 mmol/L (22-30); Chloride 104 mmol/L (98-107); Glucose 103 mg/dL (74-99); Non-African American GFR(CKD) >90 (>60 ml/min/1.73 sqM); Potassium 3.7 mmol/L (3.5-5.1); Sodium 139 mmol/L (137-145)
[2018-11-15 07:29] VITALS: RESP 16
--- NOTE | 2018-11-15 07:35 | P.GSHP ---
History of Present Illness H&P Date: 11/15/18 CHIEF COMPLAINT: Right lower quadrant abdominal pain with appendicitis for 1 day. HISTORY OF PRESENT ILLNESS: The patient is a previously healthy 28-year-old male who presents with 1.5 day history of periumbilical with right lower quadrant abdominal pain that started last night. No reports of prior abdominal pain. He states the intensity of the pain is moderate to severe. He presented with CT abdomen and pelvis consistent with dilated appendix suspicious for appendicitis hence general surgery admission. PAST MEDICAL HISTORY: See list. PAST SURGICAL HISTORY: See list. CURRENT MEDICATIONS: See list. ALLERGIES: See list. SOCIAL HISTORY: Non-tobacco user. FAMILY HISTORY: Denies Crohns disease and ulcerative colitis. REVIEW OF ORGAN SYSTEMS: CONSTITUTIONAL: Denies any fever or chills. Denies recent weight loss. HEENT: Denies any trouble with vision, hearing or nosebleeds. No difficulty swallowing. LYMPHATIC: The patient denies any lumps and bumps around the neck. ENDOCRINE: Denies any thyroid disorders. Denies any blood sugar glucose intolerance. RESPIRATORY: Denies shortness of breath including chronic cough. CARDIOVASCULAR: Denies history of chest pain with exertion. GASTROINTESTINAL: Denies regurgitation of bile at night as well as intermittent nausea. No blood in stools. GENITOURINARY: Denies any blood in urine or increased urinary frequency. MUSCULOSKELETAL: Denies current joint arthritis. NEUROLOGIC: Denies any numbness or tingling along the distal extremities. No seizure disorders or headaches. PSYCHIATRIC: Denies any depression or suicidal ideation. History of anxiety attacks HEMATOLOGIC: Denies any abnormal bleeding or bruising. PHYSICAL EXAMINATION: GENERAL: Well developed and in no acute distress. Pleasant. HEENT: No sclera icterus. Extraocular movements grossly intact. Moist buccal mucosa. Head is atraumatic, normocephalic. Hears conversational speech. No nasal drainage. NECK: Supple without lymphadenopathy. No JV distention. CHEST: Non-labored respirations and equal bilateral excursions. CARDIOVASCULAR: Regular rate and rhythm. Palpable 2+ radial pulses. ABDOMEN: Soft, tender at the right lower quadrant without guarding. MUSCULOSKELETAL: No clubbing, cyanosis or edema. NEUROLOGIC: No focal or lateralizing signs. PSYCH: Appropriate affect. Alert and oriented to person, place and time. SKIN: Well perfused. Good skin turgor. LABS: Reviewed STUDIES: CT of the abdomen and pelvis reviewed with findings consistent with appendicitis. ASSESSMENT: 1. Right lower quadrant pain. 2. Appendicitis. 3. Leukocytosis. PLAN: 1. I have discussed benefits and risks of laparoscopic appendectomy. 2. Bilateral SCDs. 3. Antibiotics. 4. DVT prophylaxis with heparin. 5. GI prophylaxis. Thank you very much for allowing me to participate in the care of your patient. Past Medical History Past Medical History: No Reported History Additional Past Medical History / Comment(s): ANXIETY ATTACKS. Obstetric history: First was a stillbirth at 20 weeks after which she had to have a blood transfusion. Second was a full-term vaginal delivery. This is her third and she's had care with Dr. Rosario. Blood type is A+, antibodies negative, hepatitis B negative, rubella immune, GBS po sitive, HIV nonreactive. History of Any Multi-Drug Resistant Organisms: None Reported Past Surgical History: Section Past Anesthesia/Blood Transfusion Reactions: No Reported Reaction Past Psychological History: Anxiety Smoking Status: Never smoker Past Alcohol Use History: Rare Past Drug Use History: None Reported - Past Family History Mother Additional Family Medical History / Comment(s): tachycardia Medications and Allergies Home Medications Medication Instructions Recorded Confirmed Type Ibuprofen [Motrin Ib] 400 mg PO Q6H PRN 11/14/18 11/14/18 History Allergies Allergy/AdvReac Type Severity Reaction Status Date / Time aspirin Allergy Rash/Hives Verified 11/14/18 17:42 azithromycin [From Zithromax] Allergy Rash/Hives Verified 11/14/18 17:42 acetaminophen AdvReac Nausea & Verified 11/14/18 17:42 [From Tylenol-Codeine #3] Vomiting codeine AdvReac Nausea & Verified 11/14/18 17:42 [From Tylenol-Codeine #3] Vomiting Surgical - Exam Vital Signs Temp Pulse Resp BP Pulse Ox 99.8 F H 119 H 18 116/60 100 11/14/18 13:31 11/14/18 13:31 11/14/18 13:31 11/14/18 13:31 11/14/18 13:31 Results - Labs 11/15/18 06:09 11/15/18 06:09 Abnormal Lab Results - Last 24 Hours (Table) 11/14/18 11/14/18 11/15/18 Range/Units 14:26 14:26 06:09 WBC 13.1 H (3.8-10.6) k/uL RBC 3.62 L (3.80-5.40) m/uL Neutrophils # 11.5 H (1.3-7.7) k/uL Lymphocytes # 0.6 L (1.0-4.8) k/uL Glucose (74-99) mg/dL Urine Ketones Trace H (Negative) Ur Leukocyte Esterase Trace H (Negative) Urine Mucus Few H (None) /hpf 11/15/18 Range/Units 06:09 WBC (3.8-10.6) k/uL RBC (3.80-5.40) m/uL Neutrophils # (1.3-7.7) k/uL Lymphocytes # (1.0-4.8) k/uL Glucose 103 H (74-99) mg/dL Urine Ketones (Negative) Ur Leukocyte Esterase (Negative) Urine Mucus (None) /hpf Diabetes panel 11/14/18 11/15/18 Range/Units 14:26 06:09 Sodium 138 139 (137-145) mmol/L Potassium 4.7 3.7 (3.5-5.1) mmol/L Chloride 102 104 (98-107) mmol/L Carbon Dioxide 27 28 (22-30) mmol/L BUN 13 11 (7-17) mg/dL Creatinine 0.60 0.66 (0.52-1.04) mg/dL Glucose 96 103 H (74-99) mg/dL Calcium 9.3 8.5 (8.4-10.2) mg/dL AST 19 (14-36) U/L ALT 18 (9-52) U/L Alkaline Phosphatase 86 (38-126) U/L Total Protein 7.4 (6.3-8.2) g/dL Albumin 4.1 (3.5-5.0) g/dL Calcium panel 11/14/18 11/15/18 Range/Units 14:26 06:09 Calcium 9.3 8.5 (8.4-10.2) mg/dL Albumin 4.1 (3.5-5.0) g/dL Pituitary panel 11/14/18 11/15/18 Range/Units 14:26 06:09 Sodium 138 139 (137-145) mmol/L Potassium 4.7 3.7 (3.5-5.1) mmol/L Chloride 102 104 (98-107) mmol/L Carbon Dioxide 27 28 (22-30) mmol/L BUN 13 11 (7-17) mg/dL Creatinine 0.60 0.66 (0.52-1.04) mg/dL Glucose 96 103 H (74-99) mg/dL Calcium 9.3 8.5 (8.4-10.2) mg/dL Adrenal panel 11/14/18 11/15/18 Range/Units 14:26 06:09 Sodium 138 139 (137-145) mmol/L Potassium 4.7 3.7 (3.5-5.1) mmol/L Chloride 102 104 (98-107) mmol/L Carbon Dioxide 27 28 (22-30) mmol/L BUN 13 11 (7-17) mg/dL Creatinine 0.60 0.66 (0.52-1.04) mg/dL Glucose 96 103 H (74-99) mg/dL Calcium 9.3 8.5 (8.4-10.2) mg/dL Total Bilirubin 1.0 (0.2-1.3) mg/dL AST 19 (14-36) U/L ALT 18 (9-52) U/L Alkaline Phosphatase 86 (38-126) U/L Total Protein 7.4 (6.3-8.2) g/dL Albumin 4.1 (3.5-5.0) g/dL
[2018-11-15] MEDS ORDERED: DEXAMETHASONE SOD PHOSPHATE 10 MG/ML 1 ML VIAL IV ONE (09:55)
[2018-11-15] MEDS ORDERED: ONDANSETRON 4 MG/2 ML VIAL IVP PRN ×2 (09:55→10:25)
[2018-11-15] MEDS ORDERED: LIDOCAINE 1% 20 ML VIAL (10MG/ML) FOR IV START INTRADERMA PRN (09:55)
[2018-11-15] MEDS ORDERED: ONDANSETRON 4 MG/2 ML VIAL IVP ONE (09:55)
[2018-11-15] MEDS ORDERED: HYDROmorphone 0.5 MG/0.5 ML SYRINGE IVP PRN (09:55)
[2018-11-15] MEDS ORDERED: SCOPOLAMINE 1.5MG/72HR PATCH TRANSDERM ONE (09:55)
[2018-11-15] MEDS ORDERED: LACTATED RINGERS 1,000 ML IV SCH (10:00)
[2018-11-15] MEDS ORDERED: HEPARIN SODIUM,PORCINE 5,000 UNIT/ML 1 ML VIAL SQ SCH (12:00)
[2018-11-15] MEDS ORDERED: BUPIVACAIN-EPI 0.25%-1:200,000 30 ML VIAL SQ ONE (12:14)
[2018-11-15] MEDS ORDERED: LIDOCAINE 1% INJ 10MG/ML (20 ML MDV) ONE (12:15)
[2018-11-15] MEDS ORDERED: GLYCOPYRROLATE 0.2 MG/ML 2 ML VIAL ONE (12:15)
[2018-11-15] MEDS ORDERED: ROCURONIUM BROMIDE 10 MG/ML 10 ML VIAL IV ONE (12:15)
[2018-11-15] MEDS ORDERED: PROPOFOL 10 MG/ML 20 ML VIAL IV ONE (12:15)
[2018-11-15] MEDS ORDERED: MIDAZOLAM 2 MG/2 ML VIAL ONE (12:15)
[2018-11-15] MEDS ORDERED: fentaNYL (PF) 50 MCG/ML 2 ML AMP ONE (12:15)
[2018-11-15] MEDS ORDERED: NEOSTIGMINE 1 MG/ML 10 ML VIAL ONE (12:15)
[2018-11-15] MEDS ORDERED: LACTATED RINGERS 1,000 ML IV ONE (12:17)
[2018-11-15] MEDS ORDERED: ACETAMINOPHEN TAB 325 MG TAB PO PRN (13:14)
[2018-11-15] MEDS ORDERED: DEXAMETHASONE SOD PHOSPHATE 10 MG/ML 1 ML VIAL IV PRN (13:16)
--- NOTE | 2018-11-15 13:21 | P.OP ---
Date of Procedure: 11/15/18 Description of Procedure: SURGEON: JULIA BETHEA MD HEALTH TECHNICAL WRITER: None. PREOPERATIVE DIAGNOSES: 1. Right lower quadrant abdominal pain. 2. Acute appendicitis. 3. Leukocytosis. POSTOPERATIVE DIAGNOSES: 1. Right lower quadrant abdominal pain. 2. Acute appendicitis. 3. Leukocytosis. PROCEDURES PERFORMED: 1. Diagnostic laparoscopy. 2. Laparoscopic appendectomy. ANESTHESIA: General with local anesthetic ESTIMATED BLOOD LOSS: 1 mL. SPECIMENS REMOVED: Appendix COMPLICATIONS: None. OPERATIVE FINDINGS: 1. Acute appendicitis with dilation of the appendix. 2. Gallbladder unremarkable 3. Unremarkable small bowel and terminal ileum. 4. The colon was unremarkable 5. Liver unremarkable. 6. Incisional hernia at Pfannenstiel incision 1 cm lower midline INDICATIONS: The patient is a 28-year-old female who presents with 24-hour history of right lower quadrant abdominal pain. She reported nausea, including anorexia. CT of the abdomen and pelvis was obtained demonstrating findings consistent with acute appendicitis. Benefits and risks, including possibility of open technique were described at length. Informed consent was obtained. DESCRIPTION OR PROCEDURE: Patient was brought to the operating room, laid in supine position. After general induction, the abdomen was prepped and draped in standard sterile fashion. Prior to incision, a timeout protocol was confirmed with surgical team regarding patient's name including procedure to be performed. Preoperative medication of Antibiotics was given intraoperatively. Additionally, bilateral SCDs including heparin 5000 units was administered. A 0 degree 5 mm laparoscopic trocar entry was performed and entered into the per itoneal cavity and the left upper quadrant. The abdomen was insufflated to 15 mmHg of pressure, which she tolerated well. Diagnostic laparoscopy demonstrated no injury to bowel, viscera or mesentery. A 5 mm port was placed just above the pubis. A separate 12 mm port was placed at the left lower quadrant all under direct visualization. The patient was placed in Trendelenburg position with the right side up. A systematic view within the abdominal cavity was started with the small bowel which was unremarkable. The gallbladder was unremarkable. The base of the cecum was without inflammation. The appendix was dilated consistent with acute appendicitis. A 45 mm Endo ROSSY echelon stapler was fired across using a jackman vascular load. The staple line was completely hemostatic. The specimen was removed from the abdominal cavity with a Cornelio through the 12 mm trocar. All instruments and pneumoperitoneum were evacuated from the abdominal cavity. A total of 30 mL 0.25% Marcaine with epinephrine was infiltrated in all wounds for postop analgesia. Liquid glue was applied to the skin after reapproximating the incisions with 4-0 Monocryl as described. At the end of the procedure, needle, sponge, and instrument count was verified correct by surgical appliances salesperson. The patient had tolerated the procedure well, was taken to the postanesthesia care unit in stable condition. Intraoperative abdominal films were described and discussed with her family who were overall pleased with her level of care.
[2018-11-15] MEDS ORDERED: KETOROLAC 30 MG/ML 1 ML VIAL IVP ONE (13:47)
[2018-11-15 14:07] VITALS: TEMP 97.6
[2018-11-15 17:04] VITALS: BP 105/66; PULSE 72
--- NOTE | 2018-11-15 18:40 | P.DS ---
Providers Date of admission: 11/14/18 17:27 Expected date of discharge: 11/15/18 Attending physician: Vero Gallegos Primary care physician: Stated None - Discharge Diagnosis(es) (1) Leukocytosis Current Visit: Yes Status: Acute (2) Right lower quadrant abdominal pain Current Visit: Yes Status: Acute (3) Acute appendicitis Current Visit: Yes Status: Acute Hospital Course: POSTOPERATIVE DIAGNOSES: 1. Right lower quadrant abdominal pain. 2. Acute appendicitis. 3. Leukocytosis. COURSE: The patient is a 28-year-old female who presented with 24-hour history of right lower quadrant abdominal pain. She reported nausea, including anorexia. CT of the abdomen and pelvis was obtained demonstrating findings consistent with acute appendicitis. She underwent laparoscopic appendectomy without sequelae. Prior to discharge, she was tolerating diet. Pertinent Studies: CT abdomen and pelvis with dilated appendix and appendicitis Procedures: PROCEDURES PERFORMED: 1. Diagnostic laparoscopy. 2. Laparoscopic appendectomy. Patient Condition at Discharge: Stable Plan - Discharge Summary Discharge Rx Participant: No New Discharge Prescriptions: No Action Ibuprofen [Motrin Ib] 400 mg PO Q6H PRN PRN Reason: Pain Discharge Medication List Ibuprofen [Motrin Ib] 400 mg PO Q6H PRN 11/14/18 [History] Follow up Appointment(s)/Referral(s): Vero Gallegos MD [STAFF PHYSICIAN] - 11/25/18 (Call office on Saturday to schedule a follow up with Dr. Gallegos in one week) Patient Instructions/Handouts: Laparoscopic Appendectomy (GEN) Activity/Diet/Wound Care/Special Instructions: No lifting over 10 pounds in 10 days, November 25. Alternate Tylenol and Motrin for pain control Keep incisions dry. Shower only, no baths Splint abdomen with pillow while ambulating if needed May apply ice packs to abdomen as needed Call your doctor if you notice any bleeding, increased swelling or pain, or develop fevers Discharge Disposition: HOME SELF-CARE
== END 2018-11-15 19:20 | disposition home or self-care (01) ==
LOC: EC 13:14 → 1SOBS 17:27
PROVIDERS: ADMIT Surgery Plastic and Reconstructive Surgery; ATTEND Surgery Plastic and Reconstructive Surgery
DX: R10.31 Right lower quadrant pain (principal); K35.80 Unspecified acute appendicitis; D72.829 Elevated white blood cell count, unspecified; F41.9 Anxiety disorder, unspecified; Z87.59 Personal history of other complications of pregnancy, childbirth and the puerperium; Z88.6 Allergy status to analgesic agent; Z88.5 Allergy status to narcotic agent; Z88.1 Allergy status to other antibiotic agents; Z82.49 Family history of ischemic heart disease and other diseases of the circulatory system
CPT/HCPCS: 44970; 96375 ×2; 96361; 96374; 99285; 36415; 88304; 80053; 80048; 83605; 83690; 85025 ×2; 81001; 81025; 87040; 93975; 76830; 74177; G0378 ×2; J2543 ×2; J2250; J2270 ×2; J1644; J1100; J2710; J2405 ×2; J2001; J3010; J1885 ×2; J2704; Q9967

== ENCOUNTER → 2019-03-25 | Outpatient (CLI) | payer OTHER ==
[2019-03-25 11:05] LABS: Basophils % (A) 1 %; Eosinophils # (A) 0.1 k/uL (0-0.7); Eosinophils % (A) 2 %; HCT 41.1 % (34.0-46.0); HGB 13.5 gm/dL (11.4-16.0); Lymphocytes # (A) 1.1 k/uL (1.0-4.8); Lymphocytes % (A) 25 %; MCHC 32.8 g/dL (31.0-37.0); MCV 94.4 fL (80.0-100.0); Monocytes # (A) 0.4 k/uL (0-1.0); Monocytes % (A) 10 %; Neutrophils # (A) 2.7 k/uL (1.3-7.7); Neutrophils % (A) 60 %; Platelet Count 255 k/uL (150-450); RBC 4.35 m/uL (3.80-5.40); WBC 4.5 k/uL (3.8-10.6)
== END | disposition home or self-care (01) ==
LOC: LABPAT 10:11
PROVIDERS: ATTEND Obstetrics & Gynecology
DX: Z01.812 Encounter for preprocedural laboratory examination (principal)
CPT/HCPCS: 85025

== ENCOUNTER 2019-04-02 07:51 | Day surgery (SDC) | payer OTHER ==
[2019-03-27 11:46] VITALS: BMI 27.4
--- NOTE | 2019-04-01 16:08 | P.HPOB ---
History of Present Illness H&P Date: 04/01/19 Chief Complaint: Family planning Estephania is a 28-year-old female who is completed her family planning and she requests permanent sterilization. Risks/benefits/alternatives to this procedure were discussed with patient in detail and all questions were answered for her prior to proceeding to the operating room. She is scheduled for a left scopic tubal occlusion with Filshie clips. Risks/benefits/alternatives were reviewed with the patient in detail and did include but were not limited to damage to bladder, bowel, vascular injuries, nerve injuries, bleeding and infection. Potential need for further surgery. She is also aware that this is designed to a permanent procedure and does have a failure rate of approximately 4 per thousand. All the questions were answered for her prior to proceeding to the operating room. Past Medical History Past Medical History: No Reported History Additional Past Medical History / Comment(s): ANXIETY ATTACKS. Obstetric history: First was a stillbirth at 20 weeks after which she had to have a blood transfusion. Second was a full-term vaginal delivery. This is her third and she's had care with Dr. Rosario. Blood type is A+, antibodies negative, hepatitis B negative, rubella immune, GBS positive, HIV nonreactive. History of Any Multi-Drug Resistant Organisms: None Reported Past Surgical History: Appendectomy, Section Past Anesthesia/Blood Transfusion Reactions: No Reported Reaction Additional Past Anesthesia/Blood Transfusion Reaction / Comment(s): mom slow to wake up from anesthesia Smoking Status: Never smoker - Past Family History Mother Additional Family Medical History / Comment(s): tachycardia Medications and Allergies Home Medications Medication Instructions Recorded Confirmed Type Naproxen Sodium [Aleve] 220 mg PO BID PRN 03/27/19 03/27/19 History Allergies Allergy/AdvReac Type Severity Reaction Status Date / Time aspirin Allergy Rash/Hives Verified 03/27/19 11:23 azithromycin [From Zithromax] Allergy Rash/Hives Verified 03/27/19 11:23 acetaminophen AdvReac Nausea & Verified 03/27/19 11:23 [From Tylenol-Codeine #3] Vomiting codeine AdvReac Nausea & Verified 03/27/19 11:23 [From Tylenol-Codeine #3] Vomiting Exam Osteopathic Statement: *. No significant issues noted on an osteopathic structural exam other than those noted in the History and Physical/Consult. - OBG Physical Exam Breast: both: normal (no masses) Abdomen: bowel sounds normal, no diffuse tenderness, no bruit present, no guarding noted, no hepatomegaly, no splenomegaly, no mass Vulva: both: normal Vagina: normal moisture, no discharge Cervix: no lesion, no discharge Uterus: normal size, normal contour Adnexa: both: normal Anus/Rectum: normal perianal skin, no rectal mass, no hemorrhoids, heme negative
[~2019-04-02 07:51] MED LIST: DEXAMETHASONE SOD PHOSPHATE 10 MG/ML 1 ML VIAL IV ONE; LACTATED RINGERS 1,000 ML IV SCH; MIDAZOLAM 2 MG/2 ML VIAL IV PRN; ONDANSETRON 4 MG/2 ML VIAL IVP ONE; Pre Op ABX Message 1 EACH MISC MISCELLANE ONE; SCOPOLAMINE 1.5MG/72HR PATCH TRANSDERM ONE; fentaNYL (PF) 50 MCG/ML 2 ML AMP IV PRN
[2019-04-02] MEDS ORDERED: LIDOCAINE 1% 20 ML VIAL (10MG/ML) FOR IV START INTRADERMA ONE (08:15)
[2019-04-02] MEDS ORDERED: PROPOFOL 10 MG/ML 20 ML VIAL IV ONE (09:33)
[2019-04-02] MEDS ORDERED: MIDAZOLAM 2 MG/2 ML VIAL ONE (09:33)
[2019-04-02] MEDS ORDERED: fentaNYL (PF) 50 MCG/ML 2 ML AMP ONE (09:33)
[2019-04-02] MEDS ORDERED: LIDOCAINE 1% INJ 10MG/ML (20 ML MDV) ONE (09:33)
[2019-04-02] MEDS ORDERED: GLYCOPYRROLATE 0.2 MG/ML 2 ML VIAL ONE (09:33)
[2019-04-02] MEDS ORDERED: SUCCINYLCHOLINE CHLORIDE 100 MG/5 ML SYR IV ONE (09:33)
[2019-04-02] MEDS ORDERED: NEOSTIGMINE 1 MG/ML 10 ML VIAL ONE (09:33)
[2019-04-02] MEDS ORDERED: KETOROLAC 30 MG/ML 1 ML VIAL ONE (09:33)
[2019-04-02] MEDS ORDERED: ROCURONIUM BROMIDE 10 MG/ML 10 ML VIAL IV ONE (09:33)
[2019-04-02] MEDS ORDERED: BUPIVACAINE (PF) 0.25% 30 ML VIAL SQ ONE (09:59)
--- NOTE | 2019-04-02 10:15 | P.OP ---
Date of Procedure: 04/02/19 Preoperative Diagnosis: Family planning Postoperative Diagnosis: Same Procedure(s) Performed: Laparoscopic tubal occlusion with Filshie clips Anesthesia: KATHI Surgeon: Atul Ibrahim Estimated Blood Loss (ml): 5 Urine output (ml): 30 Pathology: none sent Condition: stable Disposition: same day Operative Findings: Normal female pelvic anatomy Description of Procedure: Estephania was taken to the operating suite where a general anesthetic was found be adequate. She was prepped and draped in the normal sterile fashion and placed in dorsal lithotomy position. Initially a speculum was inserted the vagina and the anterior lip of the cervix was identified and grasped with an Allis clamp. Cervix was then cannulated and uterus was sounded to approximately 9 cm. Uterine manipulator was inserted other incidents removed. Red rubber catheter was then used to drain the bladder of urine. Gloves were then changed and attention was turned to the abdominal portion of the procedure were 2 mL of quarter percent Marcaine was injected periumbilically. Through this injected anesthetic a 5 mm skin incision was made and through this incision under direct visualization. Trocar and sleeve the camera was inserted. Once peritoneal plac ement was assured gas was allowed to fully insufflate the abdomen and patient was then placed in steep Trendelenburg position. Observations Tiline noted. A second skin incision was then made approximately 3 cm above the pubic symphysis in the midline through her old scar through this an 8 mm trocar and sleeve were inserted. Once this was completed uterus was elevated first the right fallopian tube than the left fallopian tube had a Filshie clip applied 2 cm from uterine cornu. No bleeding is noted in the mesosalpinx therefore all instruments were removed and gas was allowed to expel from the abdomen. 5 deep breaths were provided during this process. 4-0 Vicryl was used to close the incision subcuticularly and then the remainder of the cord percent Marcaine was injected around these incisions. Sponge, lap, needle counts were all correct 2. Instrument was then removed from the vagina. The patient was taken to the recovery room in stable and satisfactory condition. Plan - Discharge Summary Discharge Rx Participant: Yes New Discharge Prescriptions: New HYDROcodone/APAP 5-325MG [Snyder 5-325] 1 tab PO Q4HR PRN #30 tab PRN Reason: Pain No Action Naproxen Sodium [Aleve] 220 mg PO BID PRN PRN Reason: Pain Discharge Medication List Naproxen Sodium [Aleve] 220 mg PO BID PRN 03/27/19 [History] HYDROcodone/APAP 5-325MG [Snyder 5-325] 1 tab PO Q4HR PRN #30 tab 04/02/19 [Rx] Follow up Appointment(s)/Referral(s): Atul Ibrahim DO [Doctor of Osteopathic Medicine] - 2 Weeks Activity/Diet/Wound Care/Special Instructions: No heavy lifting, limit stairs and driving, and pelvic rest. If any high temperatures, heavy bleeding, or severe pain call my office Discharge Disposition: HOME SELF-CARE
[2019-04-02] MEDS ORDERED: HYDROmorphone 1 MG/ML 1 ML SYRINGE IVP ONE ×2 (10:24→10:29)
[2019-04-02 10:28] VITALS: TEMP 97
[2019-04-02] MEDS ORDERED: LACTATED RINGERS 1,000 ML IV ONE (10:40)
[2019-04-02] MEDS ORDERED: ONDANSETRON 4 MG/2 ML VIAL IVP ONE (10:50)
[2019-04-02 11:10] VITALS: BP 100/67; PULSE 68; RESP 16
== END 2019-04-02 11:28 | disposition home or self-care (01) ==
LOC: OR 07:51
PROVIDERS: ATTEND Obstetrics & Gynecology
DX: Z30.2 Encounter for sterilization (principal); F41.9 Anxiety disorder, unspecified; K21.9 Gastro-esophageal reflux disease without esophagitis; Z98.891 History of uterine scar from previous surgery; Z90.49 Acquired absence of other specified parts of digestive tract; Z88.6 Allergy status to analgesic agent; Z88.1 Allergy status to other antibiotic agents; Z88.5 Allergy status to narcotic agent; Z87.19 Personal history of other diseases of the digestive system; Z79.1 Long term (current) use of non-steroidal anti-inflammatories (NSAID)
CPT/HCPCS: 81025; 58671; J2250; J1100; J2710; J2405; J2001; J3010; J1885; J1170; J0330; J2704

== ENCOUNTER 2020-05-04 12:45 | Emergency (ER) | payer OTHER ==
[2020-05-04] MEDS ORDERED: KETOROLAC 15 MG/ML 1 ML VIAL IVP STA (13:01)
[2020-05-04] MEDS ORDERED: FAMOTIDINE 20 MG/2 ML VIAL IV STA (13:01)
[2020-05-04] MEDS ORDERED: SODIUM CHLORIDE 0.9% 1,000 ML IV STA (13:01)
[2020-05-04] MEDS ORDERED: SODIUM CHLORIDE 0.9% 500 ML 500 ML IV STA (13:01)
[2020-05-04 13:18] LABS: Basophils # (A) 0.1 k/uL (0-0.2); Basophils % (A) 1 %; Eosinophils # (A) 0.1 k/uL (0-0.7); Eosinophils % (A) 1 %; HCT 42.4 % (34.0-46.0); HGB 13.8 gm/dL (11.4-16.0); Lymphocytes % (A) 17 %; MCHC 32.6 g/dL (31.0-37.0); MCV 95.1 fL (80.0-100.0); Mean Platelet Volume 7.8; Monocytes # (A) 0.4 k/uL (0-1.0); Monocytes % (A) 8 %; Neutrophils # (A) 4.1 k/uL (1.3-7.7); Neutrophils % (A) 72 %; Platelet Count 239 k/uL (150-450); RBC 4.46 m/uL (3.80-5.40); RDW 12.1 % (11.5-15.5); WBC 5.7 k/uL (3.8-10.6)
[2020-05-04 13:27] LABS: Appearance,Urine Clear (Clear); Bilirubin,Urine Negative (Negative); Blood,Urine Trace (Negative); Color,Urine Yellow; Glucose,Urine (UA) Negative (Negative); Ketones,Urine Trace (Negative); Leukocyte Esterase,Urine Small (Negative); Mucus,Urine Few /hpf; Nitrite,Urine Negative (Negative); Protein,Urine Negative (Negative); RBC,Urine 2 /hpf (0-5); Specific Gravity,Urine 1.023 (1.001-1.035); Squamous Epithelial Cell,Urine 5 /hpf (0-4); Urobilinogen,Urine <2.0 mg/dL (<2.0); WBC,Urine 1 /hpf (0-5)
[2020-05-04 13:29] LABS: ALT 13 U/L (4-34); AST 24 U/L (14-36); African American GFR (CKD) >90 (>60 ml/min/1.73 sqM); Albumin 4.4 g/dL (3.5-5.0); Alkaline Phosphatase 56 U/L (38-126); Amylase 64 U/L (30-110); Anion Gap 10 mmol/L; Blood Urea Nitrogen 13 mg/dL (7-17); Calcium 9.4 mg/dL (8.4-10.2); Carbon Dioxide 25 mmol/L (22-30); Chloride 104 mmol/L (98-107); Glucose 96 mg/dL (74-99); Lipase 70 U/L (23-300); Non-African American GFR(CKD) >90 (>60 ml/min/1.73 sqM); Potassium 4.2 mmol/L (3.5-5.1); Sodium 139 mmol/L (137-145); Total Bilirubin 0.7 mg/dL (0.2-1.3); Total Protein 7.9 g/dL (6.3-8.2)
--- NOTE | 2020-05-04 13:34 | ED ---
Abdominal Pain HPI - General Chief Complaint: Abdominal Pain Stated Complaint: Abd,Pelvic,Back Pain Time Seen by Provider: 05/04/20 12:50 Source: patient, RN notes reviewed Mode of arrival: ambulatory Limitations: no limitations - History of Present Illness Initial Comments: This a 29-year-old female presents emergency Department with a left flank pain. Patient states pain started last night it's been waxing and waning. Nothing makes pain feel better or worse. No history kidney stones no dysuria no hematuria patient denies any chance . Patient has no severe complaints denies been diarrhea constipation. - Related Data Home Medications Medication Instructions Recorded Confirmed Ibuprofen [Motrin Ib] 600 - 800 mg PO Q8H PRN 05/04/20 05/04/20 Previous Rx's Medication Instructions Recorded Cyclobenzaprine [Flexeril] 5 mg PO TID PRN #15 tablet 05/04/20 Omeprazole [PriLOSEC] 20 mg PO AC-BRKFST #14 cap 05/04/20 Allergies Allergy/AdvReac Type Severity Reaction Status Date / Time aspirin Allergy Rash/Hives Verified 05/04/20 13:33 azithromycin [From Zithromax] Allergy Rash/Hives Verified 05/04/20 13:33 codeine AdvReac Abdominal Verified 05/04/20 13:33 [From Tylenol-Codeine #3] Pain Review of Systems ROS Statement: Those systems with pertinent positive or pertinent negative responses have been documented in the HPI. ROS Other: All systems not noted in ROS Statement are negative. Past Medical History Past Medical History: No Reported History Additional Past Medical History / Comment(s): ANXIETY ATTACKS. Obstetric history: First was a stillbirth at 20 weeks after which she had to have a blood transfusion. Second was a full-term vaginal delivery. This is her third and she's had care with Dr. Rosario. Blood type is A+, antibodies negative, hepatitis B negative, rubella immune, GBS positive, HIV nonreactive. History of Any Multi-Drug Resistant Organisms: None Reported Past Surgical History: Section Past Anesthesia/Blood Transfusion Reactions: No Reported Reaction Past Psychological History: Anxiety Smoking Status: Never smoker Past Alcohol Use History: Rare Past Drug Use History: Marijuana - Past Family History Mother Additional Family Medical History / Comment(s): tachycardia General Exam Limitations: no limitations General appearance: alert, in no apparent distress Head exam: Present: atraumatic, normocephalic, normal inspection Eye exam: Present: normal appearance, PERRL, EOMI. Absent: scleral icterus, conjunctival injection, periorbital swelling ENT exam: Present: normal exam, normal oropharynx, mucous membranes moist Neck exam: Present: normal inspection, full ROM. Absent: tenderness, meningismus, lymphadenopathy Respiratory exam: Present: normal lung sounds bilaterally. Absent: respiratory distress, wheezes, rales, rhonchi, stridor Cardiovascular Exam: Present: regular rate, normal rhythm, normal heart sounds. Absent: systolic murmur, diastolic murmur, rubs, gallop, clicks GI/Abdominal exam: Present: soft, tenderness (Minimal left), normal bowel sounds. Absent: distended, guarding, rebound, rigid Back exam: Present: CVA tenderness (L). Absent: CVA tenderness (R) Neurological exam: Present: alert, oriented X3 Skin exam: Present: warm, dry, intact, normal color. Absent: rash Course Vital Signs 05/04/20 12:46 Temperature 98.5 F Pulse Rate 91 Respiratory 16 Rate Blood Pressure 102/61 O2 Sat by Pulse 99 Oximetry Medical Decision Making - Medical Decision Making 29-year-old female presented to [facility] from for abdominal, flank or back pain. Patient had CT unremarkable. Patient does not have any evidence of kidney s tone. Patient's been having increasing her brain which patient was started on omeprazole for gastritis. Patient was likely has musculoskeletal injury. Patient discharged in stable condition with close follow-up. - Lab Data Result diagrams: 05/04/20 13:06 05/04/20 13:06 Lab Results 05/04/20 05/04/20 05/04/20 Range/Units 13:06 13:06 13:06 WBC 5.7 (3.8-10.6) k/uL RBC 4.46 (3.80-5.40) m/uL Hgb 13.8 (11.4-16.0) gm/dL Hct 42.4 (34.0-46.0) % MCV 95.1 (80.0-100.0) fL MCH 31.0 (25.0-35.0) pg MCHC 32.6 (31.0-37.0) g/dL RDW 12.1 (11.5-15.5) % Plt Count 239 (150-450) k/uL MPV 7.8 Neutrophils % 72 % Lymphocytes % 17 % Monocytes % 8 % Eosinophils % 1 % Basophils % 1 % Neutrophils # 4.1 (1.3-7.7) k/uL Lymphocytes # 1.0 (1.0-4.8) k/uL Monocytes # 0.4 (0-1.0) k/uL Eosinophils # 0.1 (0-0.7) k/uL Basophils # 0.1 (0-0.2) k/uL Sodium (137-145) mmol/L Potassium (3.5-5.1) mmol/L Chloride (98-107) mmol/L Carbon Dioxide (22-30) mmol/L Anion Gap mmol/L BUN (7-17) mg/dL Creatinine (0.52-1.04) mg/dL Est GFR (CKD-EPI)AfAm (>60 ml/min/1.73 sqM) Est GFR (CKD-EPI)NonAf (>60 ml/min/1.73 sqM) Glucose (74-99) mg/dL Calcium (8.4-10.2) mg/dL Total Bilirubin (0.2-1.3) mg/dL AST (14-36) U/L ALT (4-34) U/L Alkaline Phosphatase (38-126) U/L Total Protein (6.3-8.2) g/dL Albumin (3.5-5.0) g/dL Amylase (30-110) U/L Lipase (23-300) U/L Urine Color Yellow Urine Appearance Clear (Clear) Urine pH 6.0 (5.0-8.0) Ur Specific Kersey 1.023 (1.001-1.035) Urine Protein Negative (Negative) Urine Glucose (UA) Negative (Negative) Urine Ketones Trace H (Negative) Urine Blood Trace H (Negative) Urine Nitrite Negative (Negative) Urine Bilirubin Negative (Negative) Urine Urobilinogen <2.0 (<2.0) mg/dL Ur Leukocyte Esterase Small H (Negative) Urine RBC 2 (0-5) /hpf Urine WBC 1 (0-5) /hpf Ur Squamous Epith Cells 5 H (0-4) /hpf Urine Mucus Few H (None) /hpf Urine HCG, Qual Not Detected (Not Detectd) 05/04/20 Range/Units 13:06 WBC (3.8-10.6) k/uL RBC (3.80-5.40) m/uL Hgb (11.4-16.0) gm/dL Hct (34.0-46.0) % MCV (80.0-100.0) fL MCH (25.0-35.0) pg MCHC (31.0-37.0) g/dL RDW (11.5-15.5) % Plt Count (150-450) k/uL MPV Neutrophils % % Lymphocytes % % Monocytes % % Eosinophils % % Basophils % % Neutrophils # (1.3-7.7) k/uL Lymphocytes # (1.0-4.8) k/uL Monocytes # (0-1.0) k/uL Eosinophils # (0-0.7) k/uL Basophils # (0-0.2) k/uL Sodium 139 (137-145) mmol/L Potassium 4.2 (3.5-5.1) mmol/L Chloride 104 (98-107) mmol/L Carbon Dioxide 25 (22-30) mmol/L Anion Gap 10 mmol/L BUN 13 (7-17) mg/dL Creatinine 0.64 (0.52-1.04) mg/dL Est GFR (CKD-EPI)AfAm >90 (>60 ml/min/1.73 sqM) Est GFR (CKD-EPI)NonAf >90 (>60 ml/min/1.73 sqM) Glucose 96 (74-99) mg/dL Calcium 9.4 (8.4-10.2) mg/dL Total Bilirubin 0.7 (0.2-1.3) mg/dL AST 24 (14-36) U/L ALT 13 (4-34) U/L Alkaline Phosphatase 56 (38-126) U/L Total Protein 7.9 (6.3-8.2) g/dL Albumin 4.4 (3.5-5.0) g/dL Amylase 64 (30-110) U/L Lipase 70 (23-300) U/L Urine Color Urine Appearance (Clear) Urine pH (5.0-8.0) Ur Specific Kersey (1.001-1.035) Urine Protein (Negative) Urine Glucose (UA) (Negative) Urine Ketones (Negative) Urine Blood (Negative) Urine Nitrite (Negative) Urine Bilirubin (Negative) Urine Urobilinogen (<2.0) mg/dL Ur Leukocyte Esterase (Negative) Urine RBC (0-5) /hpf Urine WBC (0-5) /hpf Ur Squamous Epith Cells (0-4) /hpf Urine Mucus (None) /hpf Urine HCG, Qual (Not Detectd) Disposition Clinical Impression: Abdominal pain, Gastritis, Back pain Disposition: HOME SELF-CARE Condition: Stable Instructions (If sedation given, give patient instructions): Abdominal Pain (ED) Additional Instructions: Please return to the Emergency Department if symptoms worsen or any other concerns. Prescriptions: Cyclobenzaprine [Flexeril] 5 mg PO TID PRN #15 tablet PRN Reason: Muscle Spasm Omeprazole [PriLOSEC] 20 mg PO AC-BRKFST #14 cap Is patient prescribed a controlled substance at d/c from ED?: No Referrals: None,Stated [Primary Care Provider] - 1-2 days Moises Martinez [STAFF PHYSICIAN] - 1-2 days Time of Disposition: 14:37
--- NOTE | 2020-05-04 14:12 | CT ---
EXAMINATION TYPE: CT abdomen pelvis wo con DATE OF EXAM: 05/04/2020 HISTORY: Pelvic/back pain CT DLP: 484.6 mGycm. Automated Exposure Control for Dose Reduction was Utilized. TECHNIQUE: CT scan of the abdomen and pelvis is performed without oral or IV contrast. COMPARISON: CT abdomen and pelvis November 14, 2018 FINDINGS: Within the limitations of a non-contrast study, the following observations are made. LUNG BASES: No significant abnormality is appreciated. LIVER/GB: No significant abnormality is appreciated. PANCREAS: No significant abnormality is seen. SPLEEN: No significant abnormality is seen. ADRENALS: No significant abnormality is seen. KIDNEYS: No renal stones or hydronephrosis seen on noncontrast images. BOWEL: Surgical changes from interval appendectomy seen at base of cecum. No suspicious small or larg e bowel dilatation. Suboptimal evaluation without enteric contrast and patient having little intra-ab dominal fat. GENITAL ORGANS: Anteverted uterus. Tubal ligation clips along the periphery are new from prior study. Single right-sided inferior pelvic phlebolith on axial image 128 redemonstrated LYMPH NODES: No greater than 1cm abdominal or pelvic lymph nodes are appreciated. OSSEOUS STRUCTURES: Transitional-type vertebra lumbosacral junction sacralized on the left is redemon strated. OTHER: No significant additional abnormality is seen. IMPRESSION: No suspicious acute findings identified on this study to account for patient symptoms.
[2020-05-04 14:43] VITALS: BP 113/72; PULSE 89; RESP 18; TEMP 98
== END 2020-05-04 14:42 | disposition home or self-care (01) ==
LOC: EC 12:45
DX: K29.70 Gastritis, unspecified, without bleeding (principal); M54.9 Dorsalgia, unspecified; Z88.1 Allergy status to other antibiotic agents; Z88.5 Allergy status to narcotic agent; Z88.6 Allergy status to analgesic agent
CPT/HCPCS: 36415; 74176; 80053; 81001; 81025; 82150; 83690; 85025; 96361; 96374; 96375; 99284

== ENCOUNTER → 2021-03-17 | Outpatient (CLI) | payer OTHER ==
--- NOTE | 2021-03-17 16:51 | XR ---
EXAMINATION TYPE: XR lumbosacral spine min 4V DATE OF EXAM: 03/17/2021 COMPARISON: 12/20/2010 HISTORY: Pain TECHNIQUE: 5 view lumbar spine FINDINGS: There 5 lumbar-type vertebral bodies. The pedicles are intact. There is attempted sacraliza tion of L5 on the left. The body heights are preserved. Some narrowing of the L5-S1 disc height is pr esent. Remaining Disc heights are preserved. Facets are normal. No spondylolytic defects are evident. IMPRESSION: 1. Mild degenerative disc change L5-S1
== END | disposition home or self-care (01) ==
LOC: RADXRMAIN 10:16
PROVIDERS: ATTEND Family Medicine
DX: M51.37 Other intervertebral disc degeneration, lumbosacral region (principal)
CPT/HCPCS: 72110